=== PATIENT | male | born 1980 | race Caucasian/White ===

== ENCOUNTER 2017-06-02 15:06 | Emergency (ER) | payer OTHER ==
--- NOTE | 2017-06-02 15:40 | EDM.PDOC ---
ED HPI GENERAL MEDICAL PROBLEM - General Chief Complaint: General Stated Complaint: HIGH FEVER Time Seen by Provider: 06/02/17 15:25 Source of Information: Reports: Patient History Limitations: Reports: No Limitations - History of Present Illness INITIAL COMMENTS - FREE TEXT/NARRATIVE: History of present illness: [36-year-old male comes in complaining of high fevers for over a week indicates that he now has a diffuse rash that is in his trunk and spread to his extremities.] Review of systems: As per history of present illness and below otherwise all systems reviewed and negative. Past medical history: As per history of present illness and as reviewed below otherwise noncontributory. Surgical history: As per history of present illness and as reviewed below otherwise noncontributory. Social history: No reported history of drug or alcohol abuse. Family history: As per history of present illness and as reviewed below otherwise noncontributory. Physical exam: HEENT: Atraumatic, normocephalic, pupils reactive, negative for conjunctival pallor or scleral icterus, mucous membranes moist with oral pharyngeal erythema and white patchy exudates, neck supple, nontender, right TM noted to be red, dull and bulging, trachea midline. Lungs: Clear to auscultation, breath sounds equal bilaterally, chest nontender. Heart: S1S2, regular, negative for clicks, rubs, or JVD. Abdomen: Soft, nondistended, nontender. Negative for masses or hepatosplenomegaly. Negative for costovertebral tenderness. Pelvis: Stable nontender. Genitourinary: Deferred. Rectal: Deferred. Extremities: Atraumatic, negative for cords or calf pain. Neurovascular unremarkable. Neuro: Awake, alert, oriented. Cranial nerves II through XII unremarkable. Cerebellum unremarkable. Motor and sensory unremarkable throughout. Exam nonfocal. Diagnostics: [] Therapeutics: [] Impression: [#1 strep pharyngitis #2 right otitis media] Plan: [Antibiotics] Definitive disposition and diagnosis as appropriate pending reevaluation and review of above. - Related Data Allergies Allergy/AdvReac Type Severity Reaction Status Date / Time No Known Allergies Allergy Verified 06/02/17 15:28 Home Meds: Home Meds Amoxicillin/Potassium Clav [Augmentin 875-125 Tablet] 1 each PO BID #20 tablet 06/02/17 [Rx] buPROPion [Wellbutrin] 75 mg PO BEDTIME 06/02/17 [History] ED ROS GENERAL - Review of Systems Review Of Systems: See Below (See history of present illness) ED EXAM, GENERAL - Physical Exam Exam: See Below (See history of present illness) Departure - Departure Time of Disposition: 15:41 Disposition: Home, Self-Care 01 Condition: Good Clinical Impression: Strep pharyngitis, Right otitis media - Discharge Information Referrals: Bell Villagran NP [Primary Care Provider] - Forms: ED Department Discharge Additional Instructions: The following information is given to patients seen in the emergency department who are being discharged to home. This information is to outline your options for follow-up care. We provide all patients seen in our emergency department with a follow-up referral. The need for follow-up, as well as the timing and circumstances, are variable depending upon the specifics of your emergency department visit. If you don't have a primary care physician on staff, we will provide you with a referral. We always advise you to contact your personal physician following an emergency department visit to inform them of the circumstance of the visit and for follow-up with them and/or the need for any referrals to a consulting specialist. The emergency department will also refer you to a specialist when appropriate. This referral assures that you have the opportunity for follow-up care with a specialist. All of these measure are taken in an effort to provide you with optimal care, which includes your follow-up. Under all circumstances we always encourage you to contact your private physician who remains a resource for coordinating your care. When calling for follow-up care, please make the office aware that this follow-up is from your recent emergency room visit. If for any reason you are refused follow-up, please contact the [facility] Emergency Department at and asked to speak to the emergency department charge nurse. Take medication as directed Follow-up with PCP 1-2 days Return to ED as needed as discussed
[2017-06-02 16:07] VITALS: BP 131/86
== END 2017-06-02 16:03 | disposition home or self-care (01) ==
LOC: MW.ED 15:06
DX: J02.0 Streptococcal pharyngitis (principal); H66.91 Otitis media, unspecified, right ear; R21 Rash and other nonspecific skin eruption
CPT/HCPCS: 99282; 99283

== ENCOUNTER 2017-11-27 12:31 | Emergency (ER) | payer SELFPAY ==
--- NOTE | 2017-11-27 14:05 | EDM.PDOC ---
ED HPI GENERAL MEDICAL PROBLEM - General Chief Complaint: Respiratory Problem Stated Complaint: COLD,COUGH,FEVER AND RUNNING NOSE Time Seen by Provider: 11/27/17 13:05 Source of Information: Reports: Patient History Limitations: Reports: No Limitations - History of Present Illness INITIAL COMMENTS - FREE TEXT/NARRATIVE: HISTORY AND PHYSICAL: History of present illness: [Patient comes to the emergency room complaining of fever, chills, body aches, dry hacking cough sore throat and generalized malaise. 2 days ago he was experiencing a lot of fatigue, his symptoms of cough and body aches started yesterday. He has not taken any medication for his symptoms. Family members at home have similar symptoms. He states that he is otherwise healthy. He has not had any chest pain shortness of breath or difficulty breathing. The pain in his chest. No sputum production. No abdominal pain nausea or vomiting. Generalized muscle aches and pains. No recent falls or injuries.] Review of systems: As per history of present illness and below otherwise all systems reviewed and negative. Past medical history: As per history of present illness and as reviewed below otherwise noncontributory. Surgical history: As per history of present illness and as reviewed below otherwise noncontributory. Social history: No reported history of drug or alcohol abuse. Family history: As per history of present illness and as reviewed below otherwise noncontributory. Physical exam: HEENT: Atraumatic, normocephalic. TMs are pearly river. Oral mucous membranes are pink and moist. No tonsillar swelling erythema or exudate. Nares are patent and without discharge., Neck supple, no lymphadenopathy. Lungs: Clear to auscultation, breath sounds equal bilaterally. No wheezing crackles or rales. Heart: S1S2, regular rate and rhythm. Abdomen: Soft, nondistended, nontender. Pelvis: Stable nontender. Genitourinary: Deferred. Rectal: Deferred. Extremities: Atraumatic, no abnormalities. Neurovascular unremarkable. Neuro: Awake, alert, oriented. Cranial nerves II through XII unremarkable. Cerebellum unremarkable. Motor and sensory unremarkable throughout. Exam nonfocal. Diagnostics: [Strep swab, influenza A and B swab] Impression: [Influenza A] Plan: [Discussed with patient that his nasal swab is positive for influenza A. Offered Tamiflu which patient declines due to the cost. They do not have prescription insurance coverage. We discussed conservative measures for treating this virus. Strict return precautions are reviewed. Patient is are in agreement with today's plan.] Definitive disposition and diagnosis as appropriate pending reevaluation and review of above. Body Aches Pain Score (Numeric/FACES): 5 - Related Data Allergies Allergy/AdvReac Type Severity Reaction Status Date / Time No Known Allergies Allergy Verified 11/27/17 13:11 Home Meds: Home Meds . [No Known Home Meds] 11/27/17 [History] Past Medical History - Past Health History Medical/Surgical History: Denies Medical/Surgical History Social & Family History - Family History Family Medical History: Noncontributory - Tobacco Use Smoking Status *Q: Current Every Day Smoker Years of Tobacco use: 10 Packs/Tins Daily: 1 Second Hand Smoke Exposure: No - Recreational Drug Use Recreational Drug Use: No ED ROS GENERAL - Review of Systems Review Of Systems: ROS reveals no pertinent complaints other than HPI. ED EXAM, GENERAL - Physical Exam Exam: See Below Course - Vital Signs Last Recorded V/S: Last Vital Signs Temp 99.5 F 11/27/17 14:14 Pulse 105 H 11/27/17 14:14 Resp 18 11/27/17 14:14 BP 139/74 11/27/17 14:14 Pulse Ox 96 11/27/17 14:14 - Orders/Labs/Meds Orders: Active Orders 24 hr Category Date Time Status CULTURE STREP A CONFIRMATION [RM] Stat Lab 11/27/17 13:05 Results STREP SCRN A RAPID W CULT CONF [RM] Stat Lab 11/27/17 13:05 Results Departure - Departure Time of Disposition: 14:05 Disposition: Home, Self-Care 01 Condition: Good Clinical Impression: Influenza A - Discharge Information Instructions: Influenza, Adult, [id number] Referrals: PCP,None [Primary Care Provider] - Forms: ED Department Discharge Additional Instructions: The following information is given to patients seen in the emergency department who are being discharged to home. This information is to outline your options for follow-up care. We provide all patients seen in our emergency department with a follow-up referral. The need for follow-up, as well as the timing and circumstances, are variable depending upon the specifics of your emergency department visit. If you don't have a primary care physician on staff, we will provide you with a referral. We always advise you to contact your personal physician following an emergency department visit to inform them of the circumstance of the visit and for follow-up with them and/or the need for any referrals to a consulting specialist. The emergency department will also refer you to a specialist when appropriate. This referral assures that you have the opportunity for follow-up care with a specialist. All of these measure are taken in an effort to provide you with optimal care, which includes your follow-up. Under all circumstances we always encourage you to contact your private physician who remains a resource for coordinating your care. When calling for follow-up care, please make the office aware that this follow-up is from your recent emergency room visit. If for any reason you are refused follow-up, please contact the [facility] emergency department at and asked to speak to the emergency department charge nurse. [facility] [address] [place] [id number] Follow-up with your primary care provider at the clinic listed above in 48-72 hours. Tylenol, ibuprofen as needed for fever and discomfort. Robitussin or Delsym as needed for cough. Return to ER as needed as discussed. - My Orders Last 24 Hours: My Active Orders 11/27/17 13:05 CULTURE STREP A CONFIRMATION [RM] Stat STREP SCRN A RAPID W CULT CONF [RM] Stat - Assessment/Plan Last 24 Hours: My Active Orders 11/27/17 13:05 CULTURE STREP A CONFIRMATION [RM] Stat STREP SCRN A RAPID W CULT CONF [RM] Stat
[2017-11-27 14:20] VITALS: BP 139/74
== END 2017-11-27 14:14 | disposition home or self-care (01) ==
LOC: MW.ED 12:31
DX: J10.1 Influenza due to other identified influenza virus with other respiratory manifestations (principal); F17.210 Nicotine dependence, cigarettes, uncomplicated
CPT/HCPCS: 87081; 87804; 87880; 99283

== ENCOUNTER 2018-11-30 16:20 | Inpatient (IN) | payer BC ==
[2018-11-30] MEDS ORDERED: Sodium Chloride 0.9% 10 ML Syringe FLUSH PRN (16:28)
[2018-11-30] MEDS ORDERED: Sodium Chloride 0.9% 2.5 ML Syringe FLUSH PRN (16:28)
--- NOTE | 2018-11-30 16:33 | EDM.PDOC ---
ED HPI GENERAL MEDICAL PROBLEM - General Chief Complaint: Abdominal Pain Stated Complaint: ABDOMINAL PAIN Time Seen by Provider: 11/30/18 16:25 Source of Information: Reports: Patient History Limitations: Reports: No Limitations - History of Present Illness INITIAL COMMENTS - FREE TEXT/NARRATIVE: HISTORY AND PHYSICAL: History of present illness: Patient is a 38-year-old male who is brought to the emergency room with complaints of epigastric abdominal pain, nausea, subjective jaundice, and feeling full with small amounts of food. He denies any fever, chills, chest pain or shortness of breath. Denies any headache, change in vision, syncope or near syncope. States that his pain is mainly in the epigastrium and does move across to the left upper quadrant intermittently. The states that she noticed when he got out of the shower this morning he "looked like a highlighter " and was concerned that he appeared jaundiced. She reports that the yellow hue has dissipated. Denies any drug or alcohol abuse. Review of systems: As per history of present illness and below otherwise all systems reviewed and negative. Past medical history: As per history of present illness and as reviewed below otherwise noncontributory. Surgical history: As per history of present illness and as reviewed below otherwise noncontributory. Social history: See social history for further information Family history: As per history of present illness and as reviewed below otherwise noncontributory. Physical exam: General: Well-developed and well-nourished 38-year-old male. Alert and oriented. Nontoxic appearing and in no acute distress. HEENT: Atraumatic, normocephalic, pupils equal and reactive bilaterally, negative for conjunctival pallor with mild bilateral scleral jaundice, mucous membranes moist, TMs normal bilaterally, throat clear, neck supple, nontender, trachea midline. No drooling or trismus noted. No meningeal signs. No hot potato voice noted. Lungs: Clear to auscultation, breath sounds equal bilaterally, chest nontender. Heart: S1S2, regular rate and rhythm without overt murmur Abdomen: Soft, nondistended, nontender. Negative for masses or hepatosplenomegaly. Negative for costovertebral tenderness. Pelvis: Stable nontender. Genitourinary: Deferred. Rectal: Deferred. Skin: Intact, warm, dry. No lesions or rashes noted. Extremities: Atraumatic, moves all per self, negative for cords or calf pain. Neurovascular unremarkable. Neuro: Awake, alert, oriented. Cranial nerves II through XII unremarkable. Cerebellum unremarkable. Motor and sensory unremarkable throughout. Exam nonfocal. Notes: Patient's total bilirubin is 4.9, AST is 225, ALT of 913, and Alk Phos 198. CT of the abdomen and pelvis shows mild dilatation of the intra-and extrahepatic biliary ducts may be dyskinesia. Normal gallbladder without cholelithiasis. The radiologist does recommend a ultrasound for better characterization of these findings. Dr. Mckay and Dr Mcguire were both consult did on this patient. Dr. Mcguire states he is agreeable to having a consult on this patient with Dr. Mckay being the primary caregiver. Dr. Mckay is agreeable to admitting this patient for inpatient treatment. Patient is aware and agreeable to plan of care and denies any further questions or concerns at this time. Diagnostics: CBC, CMP, UA, Lipase, CT abdomen/pelvis, h.pylori Therapeutics: IV fluids, Pepcid, GI cocktail, Morphine Impression: Transaminitis Plan: Admit to Med/Surg Definitive disposition and diagnosis as appropriate pending reevaluation and review of above. Abdomen Pain Score (Numeric/FACES): 6 - Related Data Allergies Allergy/AdvReac Type Severity Reaction Status Date / Time No Known Allergies Allergy Verified 11/30/18 16:28 Home Meds: Home Meds . [No Known Home Meds] 11/27/17 [History] Past Medical History - Past Health History Medical/Surgical History: Denies Medical/Surgical History Social & Family History - Family History Family Medical History: Noncontributory ED ROS GENERAL - Review of Systems Review Of Systems: ROS reveals no pertinent complaints other than HPI. ED EXAM, GI/ABD - Physical Exam Exam: See Below (See dictation) Course - Vital Signs Last Recorded V/S: Last Vital Signs Temp 97.0 F 11/30/18 16:29 Pulse 75 11/30/18 17:48 Resp 17 11/30/18 16:29 BP 147/103 H 11/30/18 17:48 Pulse Ox 100 11/30/18 17:48 - Orders/Labs/Meds Orders: Active Orders 24 hr Category Date Time Status HEPATITIS PANEL (4) [REF] Stat Lab 11/30/18 17:59 Ordered UA RFX BART AND CULT IF INDIC [URIN] Stat Lab 11/30/18 16:28 Ordered Sodium Chloride 0.9% [Saline Flush] Med 11/30/18 16:28 Active 10 ml FLUSH ASDIRECTED PRN Sodium Chloride 0.9% [Saline Flush] Med 11/30/18 16:28 Active 2.5 ml FLUSH ASDIRECTED PRN Saline Lock Insert [OM.PC] Stat Oth 11/30/18 16:28 Ordered Medication Orders Sodium Chloride (Saline Flush) 10 ml FLUSH ASDIRECTED PRN PRN Reason: Keep Vein Open Sodium Chloride (Saline Flush) 2.5 ml FLUSH ASDIRECTED PRN PRN Reason: Keep Vein Open Labs: Laboratory Tests 11/30/18 11/30/18 11/30/18 Range/Units 16:45 16:45 16:45 WBC 6.30 (4.0-11.0) K/uL RBC 5.29 (4.50-5.90) M/uL Hgb 15.4 (13.0-17.0) g/dL Hct 44.9 (38.0-50.0) % MCV 84.9 (80.0-98.0) fL MCH 29.1 (27.0-32.0) pg MCHC 34.3 (31.0-37.0) g/dL RDW Std Deviation 42.5 (28.0-62.0) fl RDW Coeff of Marisa 14 (11.0-15.0) % Plt Count 193 (150-400) K/uL MPV 8.70 (7.40-12.00) fL Add Manual Diff YES Neutrophils % (Manual) 58 (48.0-80.0) % Lymphocytes % (Manual) 27 (16.0-40.0) % Monocytes % (Manual) 13 (0.0-15.0) % Eosinophils % (Manual) 2 (0.0-7.0) % Nucleated RBC % 0.0 /100WBC Absolute Seg Neuts 3.7 (1.4-5.7) Lymphocytes # (Manual) 1.7 (0.6-2.4) Monocytes # (Manual) 0.8 (0.0-0.8) Eosinophils # (Manual) 0.1 (0.0-0.7) Nucleated RBCs # 0 K/uL Sodium 137 (136-148) mmol/L Potassium 4.2 (3.5-5.1) mmol/L Chloride 101 (98-107) mmol/L Carbon Dioxide 28.7 (21.0-32.0) mmol/L BUN 21 H (7.0-18.0) mg/dL Creatinine 1.0 (0.8-1.3) mg/dL Est Cr Clr Drug Dosing 117.59 mL/min Estimated GFR (MDRD) > 60.0 ml/min Glucose 100 (74-106) mg/dL Calcium 9.0 (8.5-10.1) mg/dL Total Bilirubin 4.9 H (0.2-1.0) mg/dL AST 225 H (15-37) IU/L ALT 913 H (14-63) IU/L Alkaline Phosphatase 198 H (46-116) U/L Total Protein 7.8 (6.4-8.2) g/dL Albumin 3.9 (3.4-5.0) g/dL Globulin 3.9 (2.6-4.0) g/dL Albumin/Globulin Ratio 1.0 (0.9-1.6) Lipase 235 (73-393) U/L H. pylori IgG Antibody NEGATIVE (NEG) Meds: Medications Generic Name Dose Route Start Last Admin Trade Name Freq PRN Reason Stop Dose Admin Sodium Chloride 10 ml 11/30/18 16:28 Saline Flush FLUSH ASDIRECTED PRN Keep Vein Open Sodium Chloride 2.5 ml 11/30/18 16:28 Saline Flush FLUSH ASDIRECTED PRN Keep Vein Open Discontinued Medications Generic Name Dose Route Start Last Admin Trade Name Frefranki PRN Reason Stop Dose Admin Al Hydroxide/Mg Hydroxide 15 0 ml 11/30/18 16:42 11/30/18 17:14 ml/ Metoclopramide HCl 5 mg/ PO 11/30/18 16:43 1 each Lidocaine HCl 5 ml ONETIME ONE Administration Famotidine 20 mg 11/30/18 16:42 11/30/18 17:05 Pepcid IVPUSH 11/30/18 16:43 20 mg ONETIME ONE Administration Sodium Chloride 1,000 mls @ 999 mls/hr 11/30/18 16:41 11/30/18 16:59 Normal Saline IV 11/30/18 17:41 999 mls/hr STAT ONE Administration Iopamidol 100 ml 11/30/18 17:42 11/30/18 17:42 Isovue Multipack-370 (76%) IVPUSH 11/30/18 17:43 100 ml ONETIME STA Administration Morphine Sulfate 4 mg 11/30/18 17:46 11/30/18 17:52 Morphine IVPUSH 11/30/18 17:47 4 mg ONETIME ONE Administration Ondansetron HCl 4 mg 11/30/18 16:41 11/30/18 17:07 Zofran IVPUSH 11/30/18 16:42 4 mg ONETIME ONE Administration Departure - Departure Time of Disposition: 18:13 Disposition: Admitted As Inpatient 67 Clinical Impression: Transaminitis - Discharge Information Referrals: Bell Villagran NP [Primary Care Provider] - Forms: ED Department Discharge - My Orders Last 24 Hours: My Active Orders 11/30/18 16:28 UA RFX BART AND CULT IF INDIC [URIN] Stat Sodium Chloride 0.9% [Saline Flush] 10 ml FLUSH ASDIRECTED PRN Sodium Chloride 0.9% [Saline Flush] 2.5 ml FLUSH ASDIRECTED PRN Saline Lock Insert [OM.PC] Stat 11/30/18 17:59 HEPATITIS PANEL (4) [REF] Stat - Assessment/Plan Last 24 Hours: My Active Orders 11/30/18 16:28 UA RFX BART AND CULT IF INDIC [URIN] Stat Sodium Chloride 0.9% [Saline Flush] 10 ml FLUSH ASDIRECTED PRN Sodium Chloride 0.9% [Saline Flush] 2.5 ml FLUSH ASDIRECTED PRN Saline Lock Insert [OM.PC] Stat 11/30/18 17:59 HEPATITIS PANEL (4) [REF] Stat
[2018-11-30] MEDS ORDERED: Sodium Chloride 0.9% 1,000 ML IV ONE ×2 (16:41→20:00)
[2018-11-30] MEDS ORDERED: Ondansetron 4 MG/2 ML SDV IVPUSH ONE (16:41)
[2018-11-30] MEDS ORDERED: Alum Hydrox/Mag Hydrox/Simeth 15 ML, Metoclopramide 5 MG, Lidocaine 2% 5 ML PO ONE ×3 (16:42)
[2018-11-30] MEDS ORDERED: Famotidine 20 MG/2 ML SDV IVPUSH ONE (16:42)
[2018-11-30 17:13] LABS: CHLORIDE,CL 101 mmol/L (98-107); SODIUM,NA 137 mmol/L (136-148)
[2018-11-30] MEDS ORDERED: Iopamidol 755 MG/ML 500 ML Multipack Bottle IVPUSH STA (17:42)
[2018-11-30] MEDS ORDERED: Morphine 4 MG/ML Syringe IVPUSH ONE (17:46)
--- NOTE | 2018-11-30 17:59 | CT ---
INDICATION: Worsening abdominal pain over several days. TECHNIQUE: CT abdomen and pelvis acquired with 100 mL Isovue 370 IV contrast. COMPARISON: None FINDINGS: Lower chest: Unremarkable. Liver: Intrahepatic ductal dilatation. Periportal edema. Common bile duct mildly dilated to 9 mm. No filling defect. No liver lesion. Spleen: Unremarkable. Pancreas: Unremarkable. Gallbladder and bile ducts: Gallbladder is normal. Dilated common bile duct and mild intrahepatic ductal dilatation. Kidneys: Unremarkable. Adrenal glands: Unremarkable. GI tract: Unremarkable. Moderate volume of stool. Appendix is normal. Vascular structures: Negative. No sign of aneurysm. Lymph nodes: Unremarkable. Miscellaneous: Unremarkable. No free air or significant free fluid. Pelvic Organs: Uterus is not apparent and no adnexal mass. Likely prior oophorectomy and hysterectomy. Bones: Unremarkable for age. IMPRESSION: Mild dilatation of intra and extrahepatic biliary ducts may be dyskinesia. Normal gallbladder without cholelithiasis. Laboratory correlation recommended. Ultrasound may help better characterize if there is clinical concern. Please note that all CT scans at this facility use dose modulation, iterative reconstruction, and/or weight-based dosing when appropriate to reduce radiation dose to as low as reasonably achievable. Dictated by Blake Ambrocio MD @ Nov 30 2018 5:57PM Signed by Dr. Blake Ambrocio @ Nov 30 2018 5:57PM
--- NOTE | 2018-11-30 19:58 | PCM.HP ---
H&P History of Present Illness - General Date of Service: 11/30/18 Admit Problem/Dx: Admission Diagnosis/Problem Admission Diagnosis/Problem Elevated liver function tests - History of Present Illness Initial Comments - Free Text/Narative: 38 yo male who presents with five day history of epigastric pain. The pain radiates to the back. The pain is worse after eating. He denies any fevers, diarrhea, nausea or vomiting. noticed him to be yellow today. IN the ED he was noted to have abnormal LFTs. His bilirubin was 4.9. CT scan shows mild dilitation of intra and extrahepatic biliary duct. Patient denies any alcohol or acetaminophen use. Abdomen Pain Score (Numeric/FACES): 6 - Related Data Allergies/Adverse Reactions: Allergies Allergy/AdvReac Type Severity Reaction Status Date / Time No Known Allergies Allergy Verified 11/30/18 16:28 Home Medications: Home Meds . [No Known Home Meds] 11/27/17 [History] Past Medical History - Past Health History Medical/Surgical History: Denies Medical/Surgical History - Infectious Disease History Infectious Disease History: Reports: Chicken Pox Social & Family History - Family History Family Medical History: Noncontributory - Tobacco Use Smoking Status *Q: Never Smoker - Caffeine Use Caffeine Use: Reports: None - Recreational Drug Use Recreational Drug Use: No H&P Review of Systems - Review of Systems: Review Of Systems: ROS reveals no pertinent complaints other than HPI. Exam - Exam Exam: See Below - Vital Signs Vital Signs: Last Vital Signs Temp 36.1 C 11/30/18 16:29 Pulse 75 11/30/18 17:48 Resp 17 11/30/18 16:29 BP 147/103 H 11/30/18 17:48 Pulse Ox 100 11/30/18 17:48 Weight: 85.4 kg - Exam General: Alert, Oriented HEENT: Mucosa Moist & [place], Scleral Icterus Neck: Supple Lungs: Clear to Auscultation, Normal Respiratory Effort Cardiovascular: Regular Rate, Regular Rhythm GI/Abdominal Exam: Soft, Non-Tender Extremities: Non-Tender, No Pedal Edema Skin: Warm, Dry, Intact - Patient Data Lab Results Last 24 hrs: Laboratory Results - last 24 hr 11/30/18 11/30/18 11/30/18 Range/Units 16:45 16:45 16:45 WBC 6.30 (4.0-11.0) K/uL RBC 5.29 (4.50-5.90) M/uL Hgb 15.4 (13.0-17.0) g/dL Hct 44.9 (38.0-50.0) % MCV 84.9 (80.0-98.0) fL MCH 29.1 (27.0-32.0) pg MCHC 34.3 (31.0-37.0) g/dL RDW Std Deviation 42.5 (28.0-62.0) fl RDW Coeff of Marisa 14 (11.0-15.0) % Plt Count 193 (150-400) K/uL MPV 8.70 (7.40-12.00) fL Add Manual Diff YES Neutrophils % (Manual) 58 (48.0-80.0) % Lymphocytes % (Manual) 27 (16.0-40.0) % Monocytes % (Manual) 13 (0.0-15.0) % Eosinophils % (Manual) 2 (0.0-7.0) % Nucleated RBC % 0.0 /100WBC Absolute Seg Neuts 3.7 (1.4-5.7) Lymphocytes # (Manual) 1.7 (0.6-2.4) Monocytes # (Manual) 0.8 (0.0-0.8) Eosinophils # (Manual) 0.1 (0.0-0.7) Nucleated RBCs # 0 K/uL Sodium 137 (136-148) mmol/L Potassium 4.2 (3.5-5.1) mmol/L Chloride 101 (98-107) mmol/L Carbon Dioxide 28.7 (21.0-32.0) mmol/L BUN 21 H (7.0-18.0) mg/dL Creatinine 1.0 (0.8-1.3) mg/dL Est Cr Clr Drug Dosing 117.59 mL/min Estimated GFR (MDRD) > 60.0 ml/min Glucose 100 (74-106) mg/dL Calcium 9.0 (8.5-10.1) mg/dL Total Bilirubin 4.9 H (0.2-1.0) mg/dL AST 225 H (15-37) IU/L ALT 913 H (14-63) IU/L Alkaline Phosphatase 198 H (46-116) U/L Total Protein 7.8 (6.4-8.2) g/dL Albumin 3.9 (3.4-5.0) g/dL Globulin 3.9 (2.6-4.0) g/dL Albumin/Globulin Ratio 1.0 (0.9-1.6) Lipase 235 (73-393) U/L H. pylori IgG Antibody NEGATIVE (NEG) Result Diagrams: 12/01/18 04:53 12/01/18 04:53 Problem List Initiated/Reviewed/Updated: Yes Orders Last 24hrs: Active Orders 24 hr Category Date Time Status Admission Status [Patient Status] [ADT] Stat ADT 11/30/18 18:16 Active Antiembolic Devices [RC] PER UNIT ROUTINE Care 11/30/18 19:52 Ordered Oxygen Therapy [RC] PRN Care 11/30/18 19:50 Ordered Up ad Yajaira [RC] ASDIRECTED Care 11/30/18 19:50 Ordered VTE/DVT Education [RC] PER UNIT ROUTINE Care 11/30/18 19:50 Ordered Vital Signs [RC] Q4H Care 11/30/18 19:50 Ordered Clear Liquid Diet [DIET] Diet 11/30/18 Breakfast Ordered Abdomen Ltd [US] Routine Exams 11/30/18 19:26 Ordered Abdomen w Cont [MR] Routine Exams 11/30/18 19:49 Ordered ACETAMINOPHEN [CHEM] Routine Lab 11/30/18 19:24 Ordered CBC WITH AUTO DIFF [HEME] AM Lab 12/01/18 05:11 Ordered CBC WITH AUTO DIFF [HEME] AM Lab 12/02/18 05:11 Ordered COMPREHENSIVE METABOLIC PN,CMP [CHEM] AM Lab 12/01/18 05:11 Ordered COMPREHENSIVE METABOLIC PN,CMP [CHEM] AM Lab 12/02/18 05:11 Ordered HEPATITIS PANEL (4) [REF] Stat Lab 11/30/18 17:59 Ordered UA RFX BART AND CULT IF INDIC [URIN] Stat Lab 11/30/18 16:28 Ordered Sodium Chloride 0.9% [Normal Saline] 1,000 ml Med 11/30/18 20:00 Ordered IV BOLUS Sodium Chloride 0.9% [Saline Flush] Med 11/30/18 16:28 Active 10 ml FLUSH ASDIRECTED PRN Sodium Chloride 0.9% [Saline Flush] Med 11/30/18 16:28 Active 2.5 ml FLUSH ASDIRECTED PRN Saline Lock Insert [OM.PC] Stat Oth 11/30/18 16:28 Ordered Sequential Compression Device [OM.PC] Per Unit Routine Oth 11/30/18 19:50 Ordered Resuscitation Status Routine Resus Stat 11/30/18 19:50 Ordered Medication Orders Sodium Chloride (Saline Flush) 10 ml FLUSH ASDIRECTED PRN PRN Reason: Keep Vein Open Sodium Chloride (Saline Flush) 2.5 ml FLUSH ASDIRECTED PRN PRN Reason: Keep Vein Open Assessment/Plan Comment:: 38 yo male admitted for abdominal pain with jaundice. Patient has no fever or white count. Dr. Mcguire was consulted and recommended an MRCP. MRCP is not available until Sunday. Abdominal ultrasound has been ordered.
[2018-11-30] MEDS: HYDROmorphone 1 MG/ML Syringe IVPUSH PRN ×2 (20:30→23:28)
--- NOTE | 2018-11-30 21:18 | PCM.SN ---
- Free Text/Narrative Note: pt seen, chart reviewed; painful jaundice X 1 yr, on and off; denied BRBPR/ black tarry stool/dark urine/white stool/wt loss wo intention; would keep npo, repeat blood work, and hepatitis panel, and us ltd, if no finding, would proceed w MRCP; eventuallly may need ERDP; will follow with you; cx dict [id number]
[2018-12-01] MEDS: HYDROmorphone 1 MG/ML Syringe IVPUSH PRN ×3 (03:50→09:42)
[2018-12-01 06:09] LABS: CHLORIDE,CL 101 mmol/L (98-107); SODIUM,NA 135 mmol/L (136-148)
[2018-12-01] MEDS: Sodium Chloride 0.9% 1,000 ML IV SCH ×2 (08:55→18:45)
--- NOTE | 2018-12-01 09:23 | US ---
INDICATION: Jaundice. TECHNIQUE: Right upper quadrant ultrasound. COMPARISON: CT 11/30/2018. FINDINGS: The liver measures 16.3 cm in length. The hepatic echotexture is normal with no hepatic masses. There is evidence of intrahepatic biliary dilatation. The gallbladder contains no calculi. There is a non mobile echogenic focus arising along the anchors gallbladder wall, most likely representing a small polyp. No sludge is visualized. There is no sonographic Rice sign. The common duct is dilated, measuring 11 mm maximally. No intra ductal masses or calculi are seen. The pancreas appears normal with no ductal dilatation. No pancreatic mass is appreciated. The right kidney is normal. IMPRESSION: 1. Evidence of intrahepatic and extrahepatic biliary dilatation with no obvious obstructing lesion demonstrated. 2. Small gallbladder polyp. No calculi are seen. There is no sonographic evidence of cholecystitis. 3. No pancreatic abnormalities are demonstrated. Dictated by Richard Evans MD @ Dec 01 2018 9:13AM Signed by Dr. Richard Evans @ Dec 01 2018 9:20AM
--- NOTE | 2018-12-01 10:09 | PCM.PN ---
- General Info Date of Service: 12/01/18 - Review of Systems Systems Review Comment:: patient - Patient Data Vitals - Most Recent: Last Vital Signs Temp 37.0 C 12/01/18 07:15 Pulse 79 12/01/18 07:15 Resp 20 12/01/18 07:15 BP 156/94 H 12/01/18 07:15 Pulse Ox 95 12/01/18 07:15 Weight - Most Recent: 85.4 kg I&O - Last 24 Hours: Intake & Output 11/30/18 12/01/18 12/01/18 21:59 06:59 14:59 Intake Total Output Total Balance Lab Results Last 24 Hours: Laboratory Results - last 24 hr 11/30/18 11/30/18 11/30/18 Range/Units 16:45 16:45 16:45 WBC 6.30 (4.0-11.0) K/uL RBC 5.29 (4.50-5.90) M/uL Hgb 15.4 (13.0-17.0) g/dL Hct 44.9 (38.0-50.0) % MCV 84.9 (80.0-98.0) fL MCH 29.1 (27.0-32.0) pg MCHC 34.3 (31.0-37.0) g/dL RDW Std Deviation 42.5 (28.0-62.0) fl RDW Coeff of Marisa 14 (11.0-15.0) % Plt Count 193 (150-400) K/uL MPV 8.70 (7.40-12.00) fL Add Manual Diff YES Neutrophils % (Manual) 58 (48.0-80.0) % Lymphocytes % (Manual) 27 (16.0-40.0) % Monocytes % (Manual) 13 (0.0-15.0) % Eosinophils % (Manual) 2 (0.0-7.0) % Nucleated RBC % 0.0 /100WBC Absolute Seg Neuts 3.7 (1.4-5.7) Lymphocytes # (Manual) 1.7 (0.6-2.4) Monocytes # (Manual) 0.8 (0.0-0.8) Eosinophils # (Manual) 0.1 (0.0-0.7) Nucleated RBCs # 0 K/uL Sodium 137 (136-148) mmol/L Potassium 4.2 (3.5-5.1) mmol/L Chloride 101 (98-107) mmol/L Carbon Dioxide 28.7 (21.0-32.0) mmol/L BUN 21 H (7.0-18.0) mg/dL Creatinine 1.0 (0.8-1.3) mg/dL Est Cr Clr Drug Dosing 117.59 mL/min Estimated GFR (MDRD) > 60.0 ml/min Glucose 100 (74-106) mg/dL Calcium 9.0 (8.5-10.1) mg/dL Total Bilirubin 4.9 H (0.2-1.0) mg/dL AST 225 H (15-37) IU/L ALT 913 H (14-63) IU/L Alkaline Phosphatase 198 H (46-116) U/L Total Protein 7.8 (6.4-8.2) g/dL Albumin 3.9 (3.4-5.0) g/dL Globulin 3.9 (2.6-4.0) g/dL Albumin/Globulin Ratio 1.0 (0.9-1.6) Lipase 235 (73-393) U/L Urine Color Urine Appearance Urine pH (5.0-8.0) Ur Specific [place] (1.001-1.035) Urine Protein (NEGATIVE) mg/dL Urine Glucose (UA) (NEGATIVE) mg/dL Urine Ketones (NEGATIVE) mg/dL Urine Occult Blood (NEGATIVE) Urine Nitrite (NEGATIVE) Urine Bilirubin (NEGATIVE) Urine Ictotest Urine Urobilinogen (<2.0) EU/dL Ur Leukocyte Esterase (NEGATIVE) Urine RBC (0-2/HPF) Urine WBC (0-5/HPF) Ur Epithelial Cells (NONE-FEW) Urine Bacteria (NEGATIVE) Acetaminophen ug/mL H. pylori IgG Antibody NEGATIVE (NEG) 11/30/18 11/30/18 12/01/18 Range/Units 19:24 23:30 04:53 WBC 11.05 H (4.0-11.0) K/uL RBC 5.07 (4.50-5.90) M/uL Hgb 14.8 (13.0-17.0) g/dL Hct 42.7 (38.0-50.0) % MCV 84.2 (80.0-98.0) fL MCH 29.2 (27.0-32.0) pg MCHC 34.7 (31.0-37.0) g/dL RDW Std Deviation 42.7 (28.0-62.0) fl RDW Coeff of Marisa 14 (11.0-15.0) % Plt Count 196 (150-400) K/uL MPV 9.20 (7.40-12.00) fL Add Manual Diff YES Neutrophils % (Manual) 72 (48.0-80.0) % Lymphocytes % (Manual) 11 L (16.0-40.0) % Monocytes % (Manual) 17 H (0.0-15.0) % Eosinophils % (Manual) (0.0-7.0) % Nucleated RBC % 0.0 /100WBC Absolute Seg Neuts 8.0 H (1.4-5.7) Lymphocytes # (Manual) 1.2 (0.6-2.4) Monocytes # (Manual) 1.9 H (0.0-0.8) Eosinophils # (Manual) (0.0-0.7) Nucleated RBCs # 0 K/uL Sodium (136-148) mmol/L Potassium (3.5-5.1) mmol/L Chloride (98-107) mmol/L Carbon Dioxide (21.0-32.0) mmol/L BUN (7.0-18.0) mg/dL Creatinine (0.8-1.3) mg/dL Est Cr Clr Drug Dosing mL/min Estimated GFR (MDRD) ml/min Glucose (74-106) mg/dL Calcium (8.5-10.1) mg/dL Total Bilirubin (0.2-1.0) mg/dL AST (15-37) IU/L ALT (14-63) IU/L Alkaline Phosphatase (46-116) U/L Total Protein (6.4-8.2) g/dL Albumin (3.4-5.0) g/dL Globulin (2.6-4.0) g/dL Albumin/Globulin Ratio (0.9-1.6) Lipase (73-393) U/L Urine Color YELLOW Urine Appearance HAZY Urine pH 5.5 (5.0-8.0) Ur Specific [place] 1.020 (1.001-1.035) Urine Protein NEGATIVE (NEGATIVE) mg/dL Urine Glucose (UA) NEGATIVE (NEGATIVE) mg/dL Urine Ketones TRACE H (NEGATIVE) mg/dL Urine Occult Blood NEGATIVE (NEGATIVE) Urine Nitrite NEGATIVE (NEGATIVE) Urine Bilirubin MODERATE H (NEGATIVE) Urine Ictotest POSITIVE Urine Urobilinogen 0.2 (<2.0) EU/dL Ur Leukocyte Esterase NEGATIVE (NEGATIVE) Urine RBC 0-1 (0-2/HPF) Urine WBC 0-2 (0-5/HPF) Ur Epithelial Cells RARE (NONE-FEW) Urine Bacteria FEW (NEGATIVE) Acetaminophen 0.0 ug/mL H. pylori IgG Antibody (NEG) 12/01/18 Range/Units 04:53 WBC (4.0-11.0) K/uL RBC (4.50-5.90) M/uL Hgb (13.0-17.0) g/dL Hct (38.0-50.0) % MCV (80.0-98.0) fL MCH (27.0-32.0) pg MCHC (31.0-37.0) g/dL RDW Std Deviation (28.0-62.0) fl RDW Coeff of Marisa (11.0-15.0) % Plt Count (150-400) K/uL MPV (7.40-12.00) fL Add Manual Diff Neutrophils % (Manual) (48.0-80.0) % Lymphocytes % (Manual) (16.0-40.0) % Monocytes % (Manual) (0.0-15.0) % Eosinophils % (Manual) (0.0-7.0) % Nucleated RBC % /100WBC Absolute Seg Neuts (1.4-5.7) Lymphocytes # (Manual) (0.6-2.4) Monocytes # (Manual) (0.0-0.8) Eosinophils # (Manual) (0.0-0.7) Nucleated RBCs # K/uL Sodium 135 L (136-148) mmol/L Potassium 3.8 (3.5-5.1) mmol/L Chloride 101 (98-107) mmol/L Carbon Dioxide 22.8 (21.0-32.0) mmol/L BUN 10 (7.0-18.0) mg/dL Creatinine 0.7 L (0.8-1.3) mg/dL Est Cr Clr Drug Dosing 167.99 mL/min Estimated GFR (MDRD) > 60.0 ml/min Glucose 100 (74-106) mg/dL Calcium 8.1 L (8.5-10.1) mg/dL Total Bilirubin 5.2 H (0.2-1.0) mg/dL AST 138 H (15-37) IU/L ALT 695 H (14-63) IU/L Alkaline Phosphatase 189 H (46-116) U/L Total Protein 7.1 (6.4-8.2) g/dL Albumin 3.4 (3.4-5.0) g/dL Globulin 3.7 (2.6-4.0) g/dL Albumin/Globulin Ratio 0.9 (0.9-1.6) Lipase (73-393) U/L Urine Color Urine Appearance Urine pH (5.0-8.0) Ur Specific [place] (1.001-1.035) Urine Protein (NEGATIVE) mg/dL Urine Glucose (UA) (NEGATIVE) mg/dL Urine Ketones (NEGATIVE) mg/dL Urine Occult Blood (NEGATIVE) Urine Nitrite (NEGATIVE) Urine Bilirubin (NEGATIVE) Urine Ictotest Urine Urobilinogen (<2.0) EU/dL Ur Leukocyte Esterase (NEGATIVE) Urine RBC (0-2/HPF) Urine WBC (0-5/HPF) Ur Epithelial Cells (NONE-FEW) Urine Bacteria (NEGATIVE) Acetaminophen ug/mL H. pylori IgG Antibody (NEG) Med Orders - Current: Current Medications Hydromorphone HCl (Dilaudid) 1 mg IVPUSH Q2H PRN PRN Reason: Pain Last Admin: 12/01/18 09:42 Dose: 1 mg Sodium Chloride (Normal Saline) 1,000 mls @ 125 mls/hr IV ASDIRECTED JOYA Last Admin: 12/01/18 08:55 Dose: 125 mls/hr Sodium Chloride (Saline Flush) 10 ml FLUSH ASDIRECTED PRN PRN Reason: Keep Vein Open Sodium Chloride (Saline Flush) 2.5 ml FLUSH ASDIRECTED PRN PRN Reason: Keep Vein Open Discontinued Medications Al Hydroxide/Mg Hydroxide 15 ml/ Metoclopramide HCl 5 mg/Lidocaine HCl 5 ml 0 ml PO ONETIME ONE Stop: 11/30/18 16:43 Last Admin: 11/30/18 17:14 Dose: 1 each Famotidine (Pepcid) 20 mg IVPUSH ONETIME ONE Stop: 11/30/18 16:43 Last Admin: 11/30/18 17:05 Dose: 20 mg Sodium Chloride (Normal Saline) 1,000 mls @ 999 mls/hr IV STAT ONE Stop: 11/30/18 17:41 Last Admin: 11/30/18 16:59 Dose: 999 mls/hr Sodium Chloride (Normal Saline) 1,000 mls @ 999 mls/hr IV BOLUS ONE Stop: 11/30/18 21:00 Last Admin: 11/30/18 20:50 Dose: 999 mls/hr Iopamidol (Isovue Multipack-370 (76%)) 100 ml IVPUSH ONETIME STA Stop: 11/30/18 17:43 Last Admin: 11/30/18 17:42 Dose: 100 ml Morphine Sulfate (Morphine) 4 mg IVPUSH ONETIME ONE Stop: 11/30/18 17:47 Last Admin: 11/30/18 17:52 Dose: 4 mg Ondansetron HCl (Zofran) 4 mg IVPUSH ONETIME ONE Stop: 11/30/18 16:42 Last Admin: 11/30/18 17:07 Dose: 4 mg - Exam General: Alert, Oriented Lungs: Clear to Auscultation, Normal Respiratory Effort Cardiovascular: Regular Rate, Regular Rhythm GI/Abdominal Exam: Soft, Non-Tender, No Distention Extremities: Non-Tender, No Pedal Edema Skin: Warm, Dry, Intact - Problem List Review Problem List Initiated/Reviewed/Updated: Yes - My Orders Last 24 Hours: My Active Orders 11/30/18 19:26 Abdomen Ltd [US] Routine 11/30/18 19:49 Abdomen w Cont [MR] Routine 11/30/18 19:50 Oxygen Therapy [RC] PRN Up ad Yajaira [RC] ASDIRECTED VTE/DVT Education [RC] PER UNIT ROUTINE Vital Signs [RC] Q4H Sequential Compression Device [OM.PC] Per Unit Routine Resuscitation Status Routine 11/30/18 19:52 Antiembolic Devices [RC] Q6H 11/30/18 19:55 HYDROmorphone [Dilaudid] 1 mg IVPUSH Q2H PRN 12/01/18 08:45 Sodium Chloride 0.9% [Normal Saline] 1,000 ml IV ASDIRECTED 12/01/18 10:15 Ciprofloxacin in D5W [Cipro in D5W 400 MG/200 ML] 400 mg Premix Bag 1 bag IV Q12H metroNIDAZOLE/Normal Saline [Flagyl 500 MG in NS 100 ML] 500 mg Premix Bag 1 bag IV Q6H 12/01/18 Breakfast NPO After Midnight [Nothing per Oral After Midnight Diet] [DIET] 12/02/18 05:11 CBC WITH AUTO DIFF [HEME] AM COMPREHENSIVE METABOLIC PN,CMP [CHEM] AM - Plan Plan:: 38 yo male admitted for abdominal pain with jaundice. Ultrasound shows intra and extrahepatic ductal dilation but no obstructing lesion. Dr. Mcguire was consulted and recommended an MRCP. Will place on Ciprofloxacin and Flagyl.
[2018-12-01] MEDS ORDERED: metroNIDAZOLE/Normal Saline 500 MG in Premix Bag 1 BAG IV SCH ×4 (10:15)
[2018-12-01] MEDS ORDERED: Ciprofloxacin in D5W 400 MG in Premix Bag 1 BAG IV SCH ×2 (10:15)
--- NOTE | 2018-12-01 11:05 | PCM.SURGPN ---
- General Info Date of Service: 12/01/18 POD#: 1 Pain Score: 6 - Review of Systems General: Reports: No Symptoms ("still hurts, not as bad, and comes and goes, not continueous; no nausea") - Patient Data Vitals - Most Recent: Last Vital Signs Temp 98.6 F 12/01/18 07:15 Pulse 79 12/01/18 07:15 Resp 20 12/01/18 07:15 BP 156/94 H 12/01/18 07:15 Pulse Ox 95 12/01/18 07:15 Weight - Most Recent: 188 lb 4.396 oz I&O - Last 24 Hours: Intake & Output 11/30/18 12/01/18 12/01/18 21:59 06:59 14:59 Intake Total Output Total Balance Lab Results Last 24 Hrs: Laboratory Results - last 24 hr 11/30/18 11/30/18 11/30/18 Range/Units 16:45 16:45 16:45 WBC 6.30 (4.0-11.0) K/uL RBC 5.29 (4.50-5.90) M/uL Hgb 15.4 (13.0-17.0) g/dL Hct 44.9 (38.0-50.0) % MCV 84.9 (80.0-98.0) fL MCH 29.1 (27.0-32.0) pg MCHC 34.3 (31.0-37.0) g/dL RDW Std Deviation 42.5 (28.0-62.0) fl RDW Coeff of Marisa 14 (11.0-15.0) % Plt Count 193 (150-400) K/uL MPV 8.70 (7.40-12.00) fL Add Manual Diff YES Neutrophils % (Manual) 58 (48.0-80.0) % Lymphocytes % (Manual) 27 (16.0-40.0) % Monocytes % (Manual) 13 (0.0-15.0) % Eosinophils % (Manual) 2 (0.0-7.0) % Nucleated RBC % 0.0 /100WBC Absolute Seg Neuts 3.7 (1.4-5.7) Lymphocytes # (Manual) 1.7 (0.6-2.4) Monocytes # (Manual) 0.8 (0.0-0.8) Eosinophils # (Manual) 0.1 (0.0-0.7) Nucleated RBCs # 0 K/uL Sodium 137 (136-148) mmol/L Potassium 4.2 (3.5-5.1) mmol/L Chloride 101 (98-107) mmol/L Carbon Dioxide 28.7 (21.0-32.0) mmol/L BUN 21 H (7.0-18.0) mg/dL Creatinine 1.0 (0.8-1.3) mg/dL Est Cr Clr Drug Dosing 117.59 mL/min Estimated GFR (MDRD) > 60.0 ml/min Glucose 100 (74-106) mg/dL Calcium 9.0 (8.5-10.1) mg/dL Total Bilirubin 4.9 H (0.2-1.0) mg/dL AST 225 H (15-37) IU/L ALT 913 H (14-63) IU/L Alkaline Phosphatase 198 H (46-116) U/L Total Protein 7.8 (6.4-8.2) g/dL Albumin 3.9 (3.4-5.0) g/dL Globulin 3.9 (2.6-4.0) g/dL Albumin/Globulin Ratio 1.0 (0.9-1.6) Lipase 235 (73-393) U/L Urine Color Urine Appearance Urine pH (5.0-8.0) Ur Specific Serena (1.001-1.035) Urine Protein (NEGATIVE) mg/dL Urine Glucose (UA) (NEGATIVE) mg/dL Urine Ketones (NEGATIVE) mg/dL Urine Occult Blood (NEGATIVE) Urine Nitrite (NEGATIVE) Urine Bilirubin (NEGATIVE) Urine Ictotest Urine Urobilinogen (<2.0) EU/dL Ur Leukocyte Esterase (NEGATIVE) Urine RBC (0-2/HPF) Urine WBC (0-5/HPF) Ur Epithelial Cells (NONE-FEW) Urine Bacteria (NEGATIVE) Acetaminophen ug/mL H. pylori IgG Antibody NEGATIVE (NEG) 11/30/18 11/30/18 12/01/18 Range/Units 19:24 23:30 04:53 WBC 11.05 H (4.0-11.0) K/uL RBC 5.07 (4.50-5.90) M/uL Hgb 14.8 (13.0-17.0) g/dL Hct 42.7 (38.0-50.0) % MCV 84.2 (80.0-98.0) fL MCH 29.2 (27.0-32.0) pg MCHC 34.7 (31.0-37.0) g/dL RDW Std Deviation 42.7 (28.0-62.0) fl RDW Coeff of Marisa 14 (11.0-15.0) % Plt Count 196 (150-400) K/uL MPV 9.20 (7.40-12.00) fL Add Manual Diff YES Neutrophils % (Manual) 72 (48.0-80.0) % Lymphocytes % (Manual) 11 L (16.0-40.0) % Monocytes % (Manual) 17 H (0.0-15.0) % Eosinophils % (Manual) (0.0-7.0) % Nucleated RBC % 0.0 /100WBC Absolute Seg Neuts 8.0 H (1.4-5.7) Lymphocytes # (Manual) 1.2 (0.6-2.4) Monocytes # (Manual) 1.9 H (0.0-0.8) Eosinophils # (Manual) (0.0-0.7) Nucleated RBCs # 0 K/uL Sodium (136-148) mmol/L Potassium (3.5-5.1) mmol/L Chloride (98-107) mmol/L Carbon Dioxide (21.0-32.0) mmol/L BUN (7.0-18.0) mg/dL Creatinine (0.8-1.3) mg/dL Est Cr Clr Drug Dosing mL/min Estimated GFR (MDRD) ml/min Glucose (74-106) mg/dL Calcium (8.5-10.1) mg/dL Total Bilirubin (0.2-1.0) mg/dL AST (15-37) IU/L ALT (14-63) IU/L Alkaline Phosphatase (46-116) U/L Total Protein (6.4-8.2) g/dL Albumin (3.4-5.0) g/dL Globulin (2.6-4.0) g/dL Albumin/Globulin Ratio (0.9-1.6) Lipase (73-393) U/L Urine Color YELLOW Urine Appearance HAZY Urine pH 5.5 (5.0-8.0) Ur Specific Serena 1.020 (1.001-1.035) Urine Protein NEGATIVE (NEGATIVE) mg/dL Urine Glucose (UA) NEGATIVE (NEGATIVE) mg/dL Urine Ketones TRACE H (NEGATIVE) mg/dL Urine Occult Blood NEGATIVE (NEGATIVE) Urine Nitrite NEGATIVE (NEGATIVE) Urine Bilirubin MODERATE H (NEGATIVE) Urine Ictotest POSITIVE Urine Urobilinogen 0.2 (<2.0) EU/dL Ur Leukocyte Esterase NEGATIVE (NEGATIVE) Urine RBC 0-1 (0-2/HPF) Urine WBC 0-2 (0-5/HPF) Ur Epithelial Cells RARE (NONE-FEW) Urine Bacteria FEW (NEGATIVE) Acetaminophen 0.0 ug/mL H. pylori IgG Antibody (NEG) 12/01/18 Range/Units 04:53 WBC (4.0-11.0) K/uL RBC (4.50-5.90) M/uL Hgb (13.0-17.0) g/dL Hct (38.0-50.0) % MCV (80.0-98.0) fL MCH (27.0-32.0) pg MCHC (31.0-37.0) g/dL RDW Std Deviation (28.0-62.0) fl RDW Coeff of Marisa (11.0-15.0) % Plt Count (150-400) K/uL MPV (7.40-12.00) fL Add Manual Diff Neutrophils % (Manual) (48.0-80.0) % Lymphocytes % (Manual) (16.0-40.0) % Monocytes % (Manual) (0.0-15.0) % Eosinophils % (Manual) (0.0-7.0) % Nucleated RBC % /100WBC Absolute Seg Neuts (1.4-5.7) Lymphocytes # (Manual) (0.6-2.4) Monocytes # (Manual) (0.0-0.8) Eosinophils # (Manual) (0.0-0.7) Nucleated RBCs # K/uL Sodium 135 L (136-148) mmol/L Potassium 3.8 (3.5-5.1) mmol/L Chloride 101 (98-107) mmol/L Carbon Dioxide 22.8 (21.0-32.0) mmol/L BUN 10 (7.0-18.0) mg/dL Creatinine 0.7 L (0.8-1.3) mg/dL Est Cr Clr Drug Dosing 167.99 mL/min Estimated GFR (MDRD) > 60.0 ml/min Glucose 100 (74-106) mg/dL Calcium 8.1 L (8.5-10.1) mg/dL Total Bilirubin 5.2 H (0.2-1.0) mg/dL AST 138 H (15-37) IU/L ALT 695 H (14-63) IU/L Alkaline Phosphatase 189 H (46-116) U/L Total Protein 7.1 (6.4-8.2) g/dL Albumin 3.4 (3.4-5.0) g/dL Globulin 3.7 (2.6-4.0) g/dL Albumin/Globulin Ratio 0.9 (0.9-1.6) Lipase (73-393) U/L Urine Color Urine Appearance Urine pH (5.0-8.0) Ur Specific Serena (1.001-1.035) Urine Protein (NEGATIVE) mg/dL Urine Glucose (UA) (NEGATIVE) mg/dL Urine Ketones (NEGATIVE) mg/dL Urine Occult Blood (NEGATIVE) Urine Nitrite (NEGATIVE) Urine Bilirubin (NEGATIVE) Urine Ictotest Urine Urobilinogen (<2.0) EU/dL Ur Leukocyte Esterase (NEGATIVE) Urine RBC (0-2/HPF) Urine WBC (0-5/HPF) Ur Epithelial Cells (NONE-FEW) Urine Bacteria (NEGATIVE) Acetaminophen ug/mL H. pylori IgG Antibody (NEG) Med Orders - Current: Current Medications Hydromorphone HCl (Dilaudid) 1 mg IVPUSH Q2H PRN PRN Reason: Pain Last Admin: 12/01/18 09:42 Dose: 1 mg Sodium Chloride (Normal Saline) 1,000 mls @ 125 mls/hr IV ASDIRECTED JOYA Last Admin: 12/01/18 08:55 Dose: 125 mls/hr Ciprofloxacin/Dextrose 400 mg/ (Premix) 200 mls @ 200 mls/hr IV Q12H JOYA Last Admin: 12/01/18 10:25 Dose: 200 mls/hr Metronidazole 500 mg/ Premix 100 mls @ 100 mls/hr IV Q6H [facility] Sodium Chloride (Saline Flush) 10 ml FLUSH ASDIRECTED PRN PRN Reason: Keep Vein Open Sodium Chloride (Saline Flush) 2.5 ml FLUSH ASDIRECTED PRN PRN Reason: Keep Vein Open Discontinued Medications Al Hydroxide/Mg Hydroxide 15 ml/ Metoclopramide HCl 5 mg/Lidocaine HCl 5 ml 0 ml PO ONETIME ONE Stop: 11/30/18 16:43 Last Admin: 11/30/18 17:14 Dose: 1 each Famotidine (Pepcid) 20 mg IVPUSH ONETIME ONE Stop: 11/30/18 16:43 Last Admin: 11/30/18 17:05 Dose: 20 mg Sodium Chloride (Normal Saline) 1,000 mls @ 999 mls/hr IV STAT ONE Stop: 11/30/18 17:41 Last Admin: 11/30/18 16:59 Dose: 999 mls/hr Sodium Chloride (Normal Saline) 1,000 mls @ 999 mls/hr IV BOLUS ONE Stop: 11/30/18 21:00 Last Admin: 11/30/18 20:50 Dose: 999 mls/hr Metronidazole 500 mg/ Premix 100 mls @ 100 mls/hr IV Q6HR JOYA Iopamidol (Isovue Multipack-370 (76%)) 100 ml IVPUSH ONETIME STA Stop: 11/30/18 17:43 Last Admin: 11/30/18 17:42 Dose: 100 ml Morphine Sulfate (Morphine) 4 mg IVPUSH ONETIME ONE Stop: 11/30/18 17:47 Last Admin: 11/30/18 17:52 Dose: 4 mg Ondansetron HCl (Zofran) 4 mg IVPUSH ONETIME ONE Stop: 11/30/18 16:42 Last Admin: 11/30/18 17:07 Dose: 4 mg - Exam GI/Abdominal Exam: Normal Bowel Sounds, Soft, Non-Tender, No Distention (lft minimally trend down, not much) - Problem List Review Problem List Initiated/Reviewed/Updated: Yes - My Orders Last 24 Hours: Active Orders 24 hr Category Date Time Status Admission Status [Patient Status] [ADT] Stat ADT 11/30/18 18:16 Active Antiembolic Devices [RC] Q6H Care 11/30/18 19:52 Active Oxygen Therapy [RC] PRN Care 11/30/18 19:50 Active Up ad Yajaira [RC] ASDIRECTED Care 11/30/18 19:50 Active VTE/DVT Education [RC] PER UNIT ROUTINE Care 11/30/18 19:50 Active Vital Signs [RC] Q4H Care 11/30/18 19:50 Active Abdomen Ltd [US] Routine Exams 11/30/18 19:26 Stop Req Abdomen w Cont [MR] Routine Exams 11/30/18 19:49 Ordered CBC WITH AUTO DIFF [HEME] AM Lab 12/02/18 05:11 Ordered COMPREHENSIVE METABOLIC PN,CMP [CHEM] AM Lab 12/02/18 05:11 Ordered Ciprofloxacin in D5W [Cipro in D5W 400 MG/200 ML] 400 Med 12/01/18 10:15 Active mg Premix Bag 1 bag IV Q12H HYDROmorphone [Dilaudid] Med 11/30/18 19:55 Active 1 mg IVPUSH Q2H PRN Sodium Chloride 0.9% [Normal Saline] 1,000 ml Med 12/01/18 08:45 Active IV ASDIRECTED Sodium Chloride 0.9% [Saline Flush] Med 11/30/18 16:28 Active 10 ml FLUSH ASDIRECTED PRN Sodium Chloride 0.9% [Saline Flush] Med 11/30/18 16:28 Active 2.5 ml FLUSH ASDIRECTED PRN metroNIDAZOLE/Normal Saline [Flagyl 500 MG in NS 100 ML Med 12/01/18 10:15 Active ] 500 mg Premix Bag 1 bag IV Q6H Saline Lock Insert [OM.PC] Stat Oth 11/30/18 16:28 Ordered Sequential Compression Device [OM.PC] Per Unit Routine Oth 11/30/18 19:50 Ordered Resuscitation Status Routine Resus Stat 11/30/18 19:50 Ordered Medication Orders Hydromorphone HCl (Dilaudid) 1 mg IVPUSH Q2H PRN PRN Reason: Pain Last Admin: 12/01/18 09:42 Dose: 1 mg Admin: 12/01/18 07:26 Dose: 1 mg Admin: 12/01/18 03:50 Dose: 1 mg Admin: 11/30/18 23:28 Dose: 1 mg Admin: 11/30/18 20:30 Dose: 1 mg Sodium Chloride (Normal Saline) 1,000 mls @ 125 mls/hr IV ASDIRECTED JOYA Last Admin: 12/01/18 08:55 Dose: 125 mls/hr Ciprofloxacin/Dextrose 400 mg/ (Premix) 200 mls @ 200 mls/hr IV Q12H JOYA Last Admin: 12/01/18 10:25 Dose: 200 mls/hr Metronidazole 500 mg/ Premix 100 mls @ 100 mls/hr IV Q6H JOYA Sodium Chloride (Saline Flush) 10 ml FLUSH ASDIRECTED PRN PRN Reason: Keep Vein Open Sodium Chloride (Saline Flush) 2.5 ml FLUSH ASDIRECTED PRN PRN Reason: Keep Vein Open - Assessment Assessment (Free Text/Narrative):: clinically not improved; US > no stones or obstructing lesion; confirmed ductal dilation; await MCRP; - Plan Plan (Free Text/Narrative):: clinically not improved; US > no stones or obstructing lesion; confirmed ductal dilation; await MCRP;
[2018-12-01 11:40] LABS: BILIRUBIN INDIRECT 1.01
--- NOTE | 2018-12-01 11:59 | PCM.SN ---
- Free Text/Narrative Note: Per Dr. Mcguire's recommendation I spoke with GI specialist in [place]. They recommended MRCP on Sunday,starting Zosyn and calling back with MRCP results.
[2018-12-01] MEDS: Piperacillin/Tazobactam 3.375 GM in Sodium Chloride 0.9% 50 ML IV SCH ×2 (12:40→17:45)
[2018-12-01] MEDS ORDERED: Ibuprofen 200 MG Tab PO PRN (17:21)
[2018-12-02] MEDS: Piperacillin/Tazobactam 3.375 GM in Sodium Chloride 0.9% 50 ML IV SCH ×5 (00:41→23:05)
[2018-12-02] MEDS: Sodium Chloride 0.9% 1,000 ML IV SCH ×3 (02:37→23:07)
[2018-12-02 06:01] LABS: CHLORIDE,CL 105 mmol/L (98-107); SODIUM,NA 138 mmol/L (136-148)
--- NOTE | 2018-12-02 08:13 | PCM.PN ---
- General Info Date of Service: 12/02/18 Subjective Update: Patient reports he is doing better, he no longer has abdominal pain. He denies chest pain, SOB, nausea, or vomiting. He has been NPO since midnight. - Review of Systems General: Reports: No Symptoms HEENT: Reports: No Symptoms Pulmonary: Reports: No Symptoms Cardiovascular: Reports: No Symptoms Gastrointestinal: Reports: No Symptoms Genitourinary: Reports: No Symptoms Musculoskeletal: Reports: No Symptoms Skin: Reports: No Symptoms Neurological: Reports: No Symptoms Psychiatric: Reports: No Symptoms - Patient Data Vitals - Most Recent: Last Vital Signs Temp 97.5 F 12/02/18 04:00 Pulse 79 12/02/18 04:00 Resp 16 12/02/18 04:00 BP 138/85 12/02/18 04:00 Pulse Ox 95 12/02/18 04:00 Weight - Most Recent: 85.4 kg I&O - Last 24 Hours: Intake & Output 12/01/18 12/02/18 12/02/18 22:59 06:59 14:59 Intake Total 1020 1432 Output Total 1150 2100 Balance -130 -668 Lab Results Last 24 Hours: Laboratory Results - last 24 hr 12/01/18 12/02/18 12/02/18 Range/Units 04:53 05:06 05:06 WBC 6.40 (4.0-11.0) K/uL RBC 4.97 (4.50-5.90) M/uL Hgb 14.5 (13.0-17.0) g/dL Hct 41.9 (38.0-50.0) % MCV 84.3 (80.0-98.0) fL MCH 29.2 (27.0-32.0) pg MCHC 34.6 (31.0-37.0) g/dL RDW Std Deviation 42.6 (28.0-62.0) fl RDW Coeff of Marisa 14 (11.0-15.0) % Plt Count 172 (150-400) K/uL MPV 9.10 (7.40-12.00) fL Neut % (Auto) 56.0 (48.0-80.0) % Lymph % (Auto) 23.8 (16.0-40.0) % [place] % (Auto) 18.8 H (0.0-15.0) % Eos % (Auto) 1.1 (0.0-7.0) % Baso % (Auto) 0.3 (0.0-1.5) % Neut # (Auto) 3.6 (1.4-5.7) K/uL Lymph # (Auto) 1.5 (0.6-2.4) K/uL [place] # (Auto) 1.2 H (0.0-0.8) K/uL Eos # (Auto) 0.1 (0.0-0.7) K/uL Baso # (Auto) 0.0 (0.0-0.1) K/uL Nucleated RBC % 0.0 /100WBC Nucleated RBCs # 0 K/uL Sodium 138 (136-148) mmol/L Potassium 3.8 (3.5-5.1) mmol/L Chloride 105 (98-107) mmol/L Carbon Dioxide 26.9 (21.0-32.0) mmol/L BUN 8 (7.0-18.0) mg/dL Creatinine 0.8 (0.8-1.3) mg/dL Est Cr Clr Drug Dosing 146.99 mL/min Estimated GFR (MDRD) > 60.0 ml/min Glucose 104 (74-106) mg/dL Calcium 8.3 L (8.5-10.1) mg/dL Total Bilirubin 5.2 H 2.8 H (0.2-1.0) mg/dL Direct Bilirubin 4.19 H (0.0-0.5) mg/dL Indirect Bilirubin 1.01 AST 71 H (15-37) IU/L ALT 479 H (14-63) IU/L Alkaline Phosphatase 197 H (46-116) U/L Total Protein 6.7 (6.4-8.2) g/dL Albumin 2.9 L (3.4-5.0) g/dL Globulin 3.8 (2.6-4.0) g/dL Albumin/Globulin Ratio 0.8 L (0.9-1.6) Med Orders - Current: Current Medications Hydromorphone HCl (Dilaudid) 1 mg IVPUSH Q2H PRN PRN Reason: Pain Last Admin: 12/01/18 09:42 Dose: 1 mg Sodium Chloride (Normal Saline) 1,000 mls @ 125 mls/hr IV ASDIRECTED JOYA Last Admin: 12/02/18 02:37 Dose: 125 mls/hr Piperacillin Sod/Tazobactam (Sod 3.375 gm/ Sodium Chloride) 50 mls @ 100 mls/ hr IV Q6H [facility] Last Admin: 12/02/18 05:31 Dose: 100 mls/hr Ibuprofen (Motrin) 200 mg PO Q6H PRN PRN Reason: Pain Last Admin: 12/01/18 17:50 Dose: 200 mg Sodium Chloride (Saline Flush) 10 ml FLUSH ASDIRECTED PRN PRN Reason: Keep Vein Open Sodium Chloride (Saline Flush) 2.5 ml FLUSH ASDIRECTED PRN PRN Reason: Keep Vein Open Discontinued Medications Al Hydroxide/Mg Hydroxide 15 ml/ Metoclopramide HCl 5 mg/Lidocaine HCl 5 ml 0 ml PO ONETIME ONE Stop: 11/30/18 16:43 Last Admin: 11/30/18 17:14 Dose: 1 each Famotidine (Pepcid) 20 mg IVPUSH ONETIME ONE Stop: 11/30/18 16:43 Last Admin: 11/30/18 17:05 Dose: 20 mg Sodium Chloride (Normal Saline) 1,000 mls @ 999 mls/hr IV STAT ONE Stop: 11/30/18 17:41 Last Admin: 11/30/18 16:59 Dose: 999 mls/hr Sodium Chloride (Normal Saline) 1,000 mls @ 999 mls/hr IV BOLUS ONE Stop: 11/30/18 21:00 Last Admin: 11/30/18 20:50 Dose: 999 mls/hr Ciprofloxacin/Dextrose 400 mg/ (Premix) 200 mls @ 200 mls/hr IV Q12H [facility] Last Admin: 12/01/18 10:25 Dose: 200 mls/hr Metronidazole 500 mg/ Premix 100 mls @ 100 mls/hr IV Q6HR JOYA Metronidazole 500 mg/ Premix 100 mls @ 100 mls/hr IV Q6H [facility] Last Admin: 12/01/18 11:35 Dose: 100 mls/hr Iopamidol (Isovue Multipack-370 (76%)) 100 ml IVPUSH ONETIME STA Stop: 11/30/18 17:43 Last Admin: 11/30/18 17:42 Dose: 100 ml Morphine Sulfate (Morphine) 4 mg IVPUSH ONETIME ONE Stop: 11/30/18 17:47 Last Admin: 11/30/18 17:52 Dose: 4 mg Ondansetron HCl (Zofran) 4 mg IVPUSH ONETIME ONE Stop: 11/30/18 16:42 Last Admin: 11/30/18 17:07 Dose: 4 mg - Exam General: Alert, Oriented Lungs: Clear to Auscultation, Normal Respiratory Effort Cardiovascular: Regular Rate, Regular Rhythm GI/Abdominal Exam: Normal Bowel Sounds, Soft, Non-Tender Extremities: No Pedal Edema Skin: Warm, Dry, Intact Neurological: No New Focal Deficit Psy/Mental Status: Alert, Normal Affect, Normal Mood - Problem List Review Problem List Initiated/Reviewed/Updated: Yes - Plan Plan:: 1. Abdominal pain with jaundice- improving 2. transaminitis- improving 3. Hyperbilirubinemia- improving Plan- labs improving and patient no longer has any abdominal pain. MRCP scheduled for today. Dr. Mcguire consulted. Provider spoke to GI specialist in [place] yesterday who recommended the MRCP and starting the patient on Zosyn. Will continue Zosyn. Hepatitis panel pending.
[2018-12-02] MEDS ORDERED: oxyCODONE 5 MG Tab PO PRN (10:23)
--- NOTE | 2018-12-02 15:53 | MR ---
EXAMINATION: MRI abdomen/MRCP HISTORY: MRCP COMPARISON: Ultrasound dated 12/01/2018, CT dated 11/30/2018 TECHNIQUE: Multiplanar multisequence imaging obtained through the abdomen without contrast. MRCP protocol was used. FINDINGS: The liver and spleen are normal in signal without a focal mass. Adrenal glands and pancreas appear normal. There is pericholecystic fluid noted. Tiny cholelithiasis are noted. The common bile duct is mildly prominent measuring up to 8 mm. Severe slightly decreased in comparison to the recent CT. There is a trace periportal edema noted. No definite filling defect identified within the common bile duct. The kidneys are normal in signal without evidence of hydronephrosis. No retroperitoneal lymphadenopathy. The visualized large and small bowel are normal in caliber without evidence of obstruction. No abnormal bone marrow signal. IMPRESSION: 1. Tiny cholelithiasis with pericholecystic fluid and periportal edema. 2. The common bile duct is prominent in size measuring 8 mm however this appears to slightly decreased in size relative to the recent CT. This may suggest a recently passed choledocholithiasis. 3. No filling defect noted within the cystic or common bile duct.
[2018-12-03] MEDS: Piperacillin/Tazobactam 3.375 GM in Sodium Chloride 0.9% 50 ML IV SCH (04:58)
[2018-12-03 05:59] LABS: CHLORIDE,CL 105 mmol/L (98-107); SODIUM,NA 140 mmol/L (136-148)
[2018-12-03 08:10] VITALS: BP 127/71
--- NOTE | 2018-12-03 09:08 | CONS ---
DATE OF CONSULTATION: 11/30/2018 DATE OF : 1980 PRIMARY CARE PHYSICIAN: Bell Villagran NP CONCERNING QUESTION: Jaundice. HISTORY OF PRESENT ILLNESS: The patient is a 38-year-old gentleman, born and raised in [place], complained over 1 year history of on and off severe abdominal pain, 10/10 on the pain scale when happens, and nausea and vomiting. The patient remarked it has been going on for 1 year and this usually is postprandial and also, after a while, it will go away. However, at this time, it does not go away and also noticed the patient turned yellow and also the patient complaining his pee-pee is bright yellow and glowing under sunlight, does not know what it means. In the emergency room workup revealed a total bilirubin of 4.5 and in view of intrahepatic and extrahepatic ductal dilatation and mild common duct dilatation, no stone, the patient was admitted for further workup, and Surgery was consulted. PAST MEDICAL HISTORY: Significant for no diabetes, AL, CVA, or hypertension. ALLERGIES: Please refer to Nursing for details. MEDICATIONS: Please refer to Nursing for details. PAST SURGICAL HISTORY: No abdominal surgery. FAMILY HISTORY: Noncontributory. REVIEW OF SYSTEMS: Same as history of present illness. PHYSICAL EXAMINATION: GENERAL: A very pleasant gentleman, in no acute distress. HEENT: Normocephalic and atraumatic. Sclerae are icteric. LUNGS: Clear to auscultation. HEART: Regular rhythm. ABDOMEN: Soft, nondistended. No pulsating tender midline abdominal structure. No hernia appreciated. Nontender on examination. LABORATORY DATA: White count 7. Total bilirubin is 4.5. IMAGING: CAT scan as alluded to in history of present illness. IMPRESSION: Painful jaundice, possible passed stone. However, elevated total bilirubin is not common and also CAT scan failed to catch a stone. We will put on n.p.o. overnight and check for hepatitis panel and also get the ultrasound, and if none of this shows anything, the patient would benefit to have MRCP on Sunday and eventually if this all turns out to be negative, the patient will need to be transferred to have ERCP to look for biliary tree disease. We will repeat the blood work tomorrow to check his liver function tests. We will follow the patient with you. LIZA / ELLIS /[id number]
--- NOTE | 2018-12-03 09:09 | PCM.DCSUM1 ---
Discharge Summary - Hospital Course HPI Initial Comments: Admission Date: Discharge Date: Admission Diagnosis: Discharge Diagnosis: Procedures: None Consults: None Hospital Course: Disposition: The patient is a 38-year-old male who presented to the ER with abdominal pain and jaundice. In the ER workup included lab work that showed an elevated bilirubin, elevated AST, LT an alkaline phosphatase. A CT was done in the emergency room showed dilation of intrahepatic and extrahepatic bile ducts with a normal gallbladder. They recommended an ultrasound. The patient was admitted to the medical surgical floor. An ultrasound was obtained that showed the dramatic and extrahepatic biliary duct dilation without obstructing stone. They did not see any stones in the gallbladder but did see a polyp in the gallbladder. Dr. Blackman was consulted of general surgery recommended getting an MRCP as the bilirubin and liver function tests, worse on the second day of admission. Dr. Blackman recommended an MRCP and that was placed the patient on Cipro , Flagyl. MRCP was not able to be done until Sunday. On 310. A call was placed to the GI specialist in [place] recommended MRCP as well and recommended switching to Zosyn. GI, in [place] stated that once MRCP was back to call back in. Further recommendations will be given. The MRCP. On the showed, common bile duct dilation 8 mm appeared to be decreased from previous exam. Possibly due to a stone in and saw a tiny stones with. Cholestatic fluid and periportal edema. We tend spoke to the GI specialist in [place] again who recommended a laparoscopic cholecystectomy with intraoperative cholangiogram but did not think he needed an ERCP at this time. They did not believe that this was an emergent surgical case. Discharge Condition: Discharge Instructions: Discharge Medications: Follow-up: - Discharge Data Discharge Date: 12/03/18 Discharge Disposition: Home, Self-Care 01 Condition: Undetermined - Patient Summary/Data Consults: Consultations 12/03/18 08:41 Consult to Physician [CONS] Routine - Discharge Plan *PRESCRIPTION DRUG MONITORING PROGRAM REVIEWED*: No *COPY OF PRESCRIPTION DRUG MONITORING REPORT IN PATIENT BENITA: No Prescriptions/Med Rec: Ciprofloxacin HCl [Cipro] 500 mg PO BID 7 Days #14 tablet metroNIDAZOLE [Flagyl] 500 mg PO Q8H 7 Days #21 tab Home Medications: Home Meds Ciprofloxacin HCl [Cipro] 500 mg PO BID 7 Days #14 tablet 12/03/18 [Rx] metroNIDAZOLE [Flagyl] 500 mg PO Q8H 7 Days #21 tab 12/03/18 [Rx] Patient Handouts: Cholelithiasis, [id number], Ciprofloxacin tablets, Metronidazole tablets or capsules Referrals: [facility] [Outside] John Mcguire MD [Physician] - 12/05/18 9:30 am Bell Villagran NP [Primary Care Provider] - 12/12/18 9:45 am - Discharge Summary/Plan Comment DC Time >30 min.: No - Patient Data Vitals - Most Recent: Last Vital Signs Temp 98.1 F 12/03/18 08:00 Pulse 78 12/03/18 08:00 Resp 14 12/03/18 08:00 BP 127/71 12/03/18 08:00 Pulse Ox 94 L 12/03/18 08:00 Weight - Most Recent: 85.4 kg I&O - Last 24 hours: Intake & Output 12/02/18 12/03/18 12/03/18 22:59 06:59 14:59 Intake Total 1098 1280 Output Total 1475 1050 Balance -377 230 Lab Results - Last 24 hrs: Laboratory Results - last 24 hr 12/03/18 12/03/18 Range/Units 05:10 05:10 WBC 7.33 (4.0-11.0) K/uL RBC 4.69 (4.50-5.90) M/uL Hgb 13.7 (13.0-17.0) g/dL Hct 39.7 (38.0-50.0) % MCV 84.6 (80.0-98.0) fL MCH 29.2 (27.0-32.0) pg MCHC 34.5 (31.0-37.0) g/dL RDW Std Deviation 42.7 (28.0-62.0) fl RDW Coeff of Marisa 14 (11.0-15.0) % Plt Count 195 (150-400) K/uL MPV 9.30 (7.40-12.00) fL Neut % (Auto) 60.0 (48.0-80.0) % Lymph % (Auto) 23.7 (16.0-40.0) % [place] % (Auto) 14.3 (0.0-15.0) % Eos % (Auto) 1.6 (0.0-7.0) % Baso % (Auto) 0.4 (0.0-1.5) % Neut # (Auto) 4.4 (1.4-5.7) K/uL Lymph # (Auto) 1.7 (0.6-2.4) K/uL [place] # (Auto) 1.1 H (0.0-0.8) K/uL Eos # (Auto) 0.1 (0.0-0.7) K/uL Baso # (Auto) 0.0 (0.0-0.1) K/uL Nucleated RBC % 0.0 /100WBC Nucleated RBCs # 0 K/uL Sodium 140 (136-148) mmol/L Potassium 4.1 (3.5-5.1) mmol/L Chloride 105 (98-107) mmol/L Carbon Dioxide 25.5 (21.0-32.0) mmol/L BUN 10 (7.0-18.0) mg/dL Creatinine 0.9 (0.8-1.3) mg/dL Est Cr Clr Drug Dosing 130.66 mL/min Estimated GFR (MDRD) > 60.0 ml/min Glucose 92 (74-106) mg/dL Calcium 8.1 L (8.5-10.1) mg/dL Total Bilirubin 1.8 H (0.2-1.0) mg/dL AST 87 H (15-37) IU/L ALT 391 H (14-63) IU/L Alkaline Phosphatase 175 H (46-116) U/L Total Protein 6.6 (6.4-8.2) g/dL Albumin 2.8 L (3.4-5.0) g/dL Globulin 3.8 (2.6-4.0) g/dL Albumin/Globulin Ratio 0.7 L (0.9-1.6) Med Orders - Current: Current Medications Hydromorphone HCl (Dilaudid) 1 mg IVPUSH Q2H PRN PRN Reason: Pain Last Admin: 12/01/18 09:42 Dose: 1 mg Sodium Chloride (Normal Saline) 1,000 mls @ 125 mls/hr IV ASDIRECTED JOYA Last Admin: 12/02/18 23:07 Dose: 125 mls/hr Ibuprofen (Motrin) 200 mg PO Q6H PRN PRN Reason: Pain Last Admin: 12/01/18 17:50 Dose: 200 mg Sodium Chloride (Saline Flush) 10 ml FLUSH ASDIRECTED PRN PRN Reason: Keep Vein Open Sodium Chloride (Saline Flush) 2.5 ml FLUSH ASDIRECTED PRN PRN Reason: Keep Vein Open Discontinued Medications Al Hydroxide/Mg Hydroxide 15 ml/ Metoclopramide HCl 5 mg/Lidocaine HCl 5 ml 0 ml PO ONETIME ONE Stop: 11/30/18 16:43 Last Admin: 11/30/18 17:14 Dose: 1 each Famotidine (Pepcid) 20 mg IVPUSH ONETIME ONE Stop: 11/30/18 16:43 Last Admin: 11/30/18 17:05 Dose: 20 mg Sodium Chloride (Normal Saline) 1,000 mls @ 999 mls/hr IV STAT ONE Stop: 11/30/18 17:41 Last Admin: 11/30/18 16:59 Dose: 999 mls/hr Sodium Chloride (Normal Saline) 1,000 mls @ 999 mls/hr IV BOLUS ONE Stop: 11/30/18 21:00 Last Admin: 11/30/18 20:50 Dose: 999 mls/hr Ciprofloxacin/Dextrose 400 mg/ (Premix) 200 mls @ 200 mls/hr IV Q12H JOYA Last Admin: 12/01/18 10:25 Dose: 200 mls/hr Metronidazole 500 mg/ Premix 100 mls @ 100 mls/hr IV Q6HR JOYA Metronidazole 500 mg/ Premix 100 mls @ 100 mls/hr IV Q6H JOYA Last Admin: 12/01/18 11:35 Dose: 100 mls/hr Piperacillin Sod/Tazobactam (Sod 3.375 gm/ Sodium Chloride) 50 mls @ 100 mls/ hr IV Q6H JOYA Last Admin: 12/03/18 04:58 Dose: 100 mls/hr Iopamidol (Isovue Multipack-370 (76%)) 100 ml IVPUSH ONETIME STA Stop: 11/30/18 17:43 Last Admin: 11/30/18 17:42 Dose: 100 ml Morphine Sulfate (Morphine) 4 mg IVPUSH ONETIME ONE Stop: 11/30/18 17:47 Last Admin: 11/30/18 17:52 Dose: 4 mg Ondansetron HCl (Zofran) 4 mg IVPUSH ONETIME ONE Stop: 11/30/18 16:42 Last Admin: 11/30/18 17:07 Dose: 4 mg Oxycodone HCl (Oxycodone) 5 mg PO Q4H PRN PRN Reason: Pain
--- NOTE | 2018-12-03 10:36 | PCM.SURGPN ---
- General Info Date of Service: 12/03/18 Functional Status: Reports: Pain Controlled - Review of Systems General: Reports: No Symptoms Gastrointestinal: Reports: No Symptoms (no abd pain X 2 days; MRCP showed a tiny stone in gb) - Patient Data Vitals - Most Recent: Last Vital Signs Temp 98.1 F 12/03/18 08:00 Pulse 78 12/03/18 08:00 Resp 14 12/03/18 08:00 BP 127/71 12/03/18 08:00 Pulse Ox 94 L 12/03/18 08:00 Weight - Most Recent: 188 lb 4.396 oz I&O - Last 24 Hours: Intake & Output 12/02/18 12/03/18 12/03/18 22:59 06:59 14:59 Intake Total 1098 1280 Output Total 1475 1050 Balance -377 230 Lab Results Last 24 Hrs: Laboratory Results - last 24 hr 12/03/18 12/03/18 Range/Units 05:10 05:10 WBC 7.33 (4.0-11.0) K/uL RBC 4.69 (4.50-5.90) M/uL Hgb 13.7 (13.0-17.0) g/dL Hct 39.7 (38.0-50.0) % MCV 84.6 (80.0-98.0) fL MCH 29.2 (27.0-32.0) pg MCHC 34.5 (31.0-37.0) g/dL RDW Std Deviation 42.7 (28.0-62.0) fl RDW Coeff of Marisa 14 (11.0-15.0) % Plt Count 195 (150-400) K/uL MPV 9.30 (7.40-12.00) fL Neut % (Auto) 60.0 (48.0-80.0) % Lymph % (Auto) 23.7 (16.0-40.0) % [place] % (Auto) 14.3 (0.0-15.0) % Eos % (Auto) 1.6 (0.0-7.0) % Baso % (Auto) 0.4 (0.0-1.5) % Neut # (Auto) 4.4 (1.4-5.7) K/uL Lymph # (Auto) 1.7 (0.6-2.4) K/uL [place] # (Auto) 1.1 H (0.0-0.8) K/uL Eos # (Auto) 0.1 (0.0-0.7) K/uL Baso # (Auto) 0.0 (0.0-0.1) K/uL Nucleated RBC % 0.0 /100WBC Nucleated RBCs # 0 K/uL Sodium 140 (136-148) mmol/L Potassium 4.1 (3.5-5.1) mmol/L Chloride 105 (98-107) mmol/L Carbon Dioxide 25.5 (21.0-32.0) mmol/L BUN 10 (7.0-18.0) mg/dL Creatinine 0.9 (0.8-1.3) mg/dL Est Cr Clr Drug Dosing 130.66 mL/min Estimated GFR (MDRD) > 60.0 ml/min Glucose 92 (74-106) mg/dL Calcium 8.1 L (8.5-10.1) mg/dL Total Bilirubin 1.8 H (0.2-1.0) mg/dL AST 87 H (15-37) IU/L ALT 391 H (14-63) IU/L Alkaline Phosphatase 175 H (46-116) U/L Total Protein 6.6 (6.4-8.2) g/dL Albumin 2.8 L (3.4-5.0) g/dL Globulin 3.8 (2.6-4.0) g/dL Albumin/Globulin Ratio 0.7 L (0.9-1.6) Med Orders - Current: Current Medications Hydromorphone HCl (Dilaudid) 1 mg IVPUSH Q2H PRN PRN Reason: Pain Last Admin: 12/01/18 09:42 Dose: 1 mg Sodium Chloride (Normal Saline) 1,000 mls @ 125 mls/hr IV ASDIRECTED JOYA Last Admin: 12/02/18 23:07 Dose: 125 mls/hr Ibuprofen (Motrin) 200 mg PO Q6H PRN PRN Reason: Pain Last Admin: 12/01/18 17:50 Dose: 200 mg Sodium Chloride (Saline Flush) 10 ml FLUSH ASDIRECTED PRN PRN Reason: Keep Vein Open Sodium Chloride (Saline Flush) 2.5 ml FLUSH ASDIRECTED PRN PRN Reason: Keep Vein Open Discontinued Medications Al Hydroxide/Mg Hydroxide 15 ml/ Metoclopramide HCl 5 mg/Lidocaine HCl 5 ml 0 ml PO ONETIME ONE Stop: 11/30/18 16:43 Last Admin: 11/30/18 17:14 Dose: 1 each Famotidine (Pepcid) 20 mg IVPUSH ONETIME ONE Stop: 11/30/18 16:43 Last Admin: 11/30/18 17:05 Dose: 20 mg Sodium Chloride (Normal Saline) 1,000 mls @ 999 mls/hr IV STAT ONE Stop: 11/30/18 17:41 Last Admin: 11/30/18 16:59 Dose: 999 mls/hr Sodium Chloride (Normal Saline) 1,000 mls @ 999 mls/hr IV BOLUS ONE Stop: 11/30/18 21:00 Last Admin: 11/30/18 20:50 Dose: 999 mls/hr Ciprofloxacin/Dextrose 400 mg/ (Premix) 200 mls @ 200 mls/hr IV Q12H JOYA Last Admin: 12/01/18 10:25 Dose: 200 mls/hr Metronidazole 500 mg/ Premix 100 mls @ 100 mls/hr IV Q6HR JOYA Metronidazole 500 mg/ Premix 100 mls @ 100 mls/hr IV Q6H JOYA Last Admin: 12/01/18 11:35 Dose: 100 mls/hr Piperacillin Sod/Tazobactam (Sod 3.375 gm/ Sodium Chloride) 50 mls @ 100 mls/ hr IV Q6H JOYA Last Admin: 12/03/18 04:58 Dose: 100 mls/hr Iopamidol (Isovue Multipack-370 (76%)) 100 ml IVPUSH ONETIME STA Stop: 11/30/18 17:43 Last Admin: 11/30/18 17:42 Dose: 100 ml Morphine Sulfate (Morphine) 4 mg IVPUSH ONETIME ONE Stop: 11/30/18 17:47 Last Admin: 11/30/18 17:52 Dose: 4 mg Ondansetron HCl (Zofran) 4 mg IVPUSH ONETIME ONE Stop: 11/30/18 16:42 Last Admin: 11/30/18 17:07 Dose: 4 mg Oxycodone HCl (Oxycodone) 5 mg PO Q4H PRN PRN Reason: Pain - Exam GI/Abdominal Exam: Normal Bowel Sounds, Soft, Non-Tender - Problem List Review Problem List Initiated/Reviewed/Updated: Yes - My Orders Last 24 Hours: Active Orders 24 hr Category Date Time Status Notify Provider Consults [RC] ASDIRECTED Care 12/03/18 08:43 Active Consult to Physician [CONS] Routine Cons 12/03/18 08:41 Active Low Fat Diet [DIET] Diet 12/03/18 Breakfast Active Medication Orders Hydromorphone HCl (Dilaudid) 1 mg IVPUSH Q2H PRN PRN Reason: Pain Last Admin: 12/01/18 09:42 Dose: 1 mg Admin: 12/01/18 07:26 Dose: 1 mg Admin: 12/01/18 03:50 Dose: 1 mg Admin: 11/30/18 23:28 Dose: 1 mg Admin: 11/30/18 20:30 Dose: 1 mg Sodium Chloride (Normal Saline) 1,000 mls @ 125 mls/hr IV ASDIRECTED JOYA Last Admin: 12/02/18 23:07 Dose: 125 mls/hr Infusion: 12/02/18 20:08 Dose: 125 mls/hr Admin: 12/02/18 12:08 Dose: 125 mls/hr Infusion: 12/02/18 10:37 Dose: 125 mls/hr Admin: 12/02/18 02:37 Dose: 125 mls/hr Infusion: 12/02/18 02:37 Dose: 125 mls/hr Admin: 12/01/18 18:45 Dose: 125 mls/hr Infusion: 12/01/18 16:55 Dose: 125 mls/hr Admin: 12/01/18 08:55 Dose: 125 mls/hr Ibuprofen (Motrin) 200 mg PO Q6H PRN PRN Reason: Pain Last Admin: 12/01/18 17:50 Dose: 200 mg Sodium Chloride (Saline Flush) 10 ml FLUSH ASDIRECTED PRN PRN Reason: Keep Vein Open Sodium Chloride (Saline Flush) 2.5 ml FLUSH ASDIRECTED PRN PRN Reason: Keep Vein Open - Assessment Assessment (Free Text/Narrative):: Resolving abd pain; mrcp > one tiny stone; LFT remained elevated today, but regressing, trending in the right direction; ok to start po low fat diet, full liquid or regular; and fu w me in a wk to schedule juan jasmine ioc; thanks for the consult and care of this present pt.
--- NOTE | 2018-12-03 10:38 | PCM.SURGPN ---
- General Info Date of Service: 12/02/18 Functional Status: Reports: Pain Controlled (abd pain resolved) - Review of Systems General: Reports: No Symptoms - Patient Data Vitals - Most Recent: Last Vital Signs Temp 98.1 F 12/03/18 08:00 Pulse 78 12/03/18 08:00 Resp 14 12/03/18 08:00 BP 127/71 12/03/18 08:00 Pulse Ox 94 L 12/03/18 08:00 Weight - Most Recent: 188 lb 4.396 oz I&O - Last 24 Hours: Intake & Output 12/02/18 12/03/18 12/03/18 22:59 06:59 14:59 Intake Total 1098 1280 Output Total 1475 1050 Balance -377 230 Lab Results Last 24 Hrs: Laboratory Results - last 24 hr 12/03/18 12/03/18 Range/Units 05:10 05:10 WBC 7.33 (4.0-11.0) K/uL RBC 4.69 (4.50-5.90) M/uL Hgb 13.7 (13.0-17.0) g/dL Hct 39.7 (38.0-50.0) % MCV 84.6 (80.0-98.0) fL MCH 29.2 (27.0-32.0) pg MCHC 34.5 (31.0-37.0) g/dL RDW Std Deviation 42.7 (28.0-62.0) fl RDW Coeff of Marisa 14 (11.0-15.0) % Plt Count 195 (150-400) K/uL MPV 9.30 (7.40-12.00) fL Neut % (Auto) 60.0 (48.0-80.0) % Lymph % (Auto) 23.7 (16.0-40.0) % [place] % (Auto) 14.3 (0.0-15.0) % Eos % (Auto) 1.6 (0.0-7.0) % Baso % (Auto) 0.4 (0.0-1.5) % Neut # (Auto) 4.4 (1.4-5.7) K/uL Lymph # (Auto) 1.7 (0.6-2.4) K/uL [place] # (Auto) 1.1 H (0.0-0.8) K/uL Eos # (Auto) 0.1 (0.0-0.7) K/uL Baso # (Auto) 0.0 (0.0-0.1) K/uL Nucleated RBC % 0.0 /100WBC Nucleated RBCs # 0 K/uL Sodium 140 (136-148) mmol/L Potassium 4.1 (3.5-5.1) mmol/L Chloride 105 (98-107) mmol/L Carbon Dioxide 25.5 (21.0-32.0) mmol/L BUN 10 (7.0-18.0) mg/dL Creatinine 0.9 (0.8-1.3) mg/dL Est Cr Clr Drug Dosing 130.66 mL/min Estimated GFR (MDRD) > 60.0 ml/min Glucose 92 (74-106) mg/dL Calcium 8.1 L (8.5-10.1) mg/dL Total Bilirubin 1.8 H (0.2-1.0) mg/dL AST 87 H (15-37) IU/L ALT 391 H (14-63) IU/L Alkaline Phosphatase 175 H (46-116) U/L Total Protein 6.6 (6.4-8.2) g/dL Albumin 2.8 L (3.4-5.0) g/dL Globulin 3.8 (2.6-4.0) g/dL Albumin/Globulin Ratio 0.7 L (0.9-1.6) Med Orders - Current: Current Medications Hydromorphone HCl (Dilaudid) 1 mg IVPUSH Q2H PRN PRN Reason: Pain Last Admin: 12/01/18 09:42 Dose: 1 mg Sodium Chloride (Normal Saline) 1,000 mls @ 125 mls/hr IV ASDIRECTED JOYA Last Admin: 12/02/18 23:07 Dose: 125 mls/hr Ibuprofen (Motrin) 200 mg PO Q6H PRN PRN Reason: Pain Last Admin: 12/01/18 17:50 Dose: 200 mg Sodium Chloride (Saline Flush) 10 ml FLUSH ASDIRECTED PRN PRN Reason: Keep Vein Open Sodium Chloride (Saline Flush) 2.5 ml FLUSH ASDIRECTED PRN PRN Reason: Keep Vein Open Discontinued Medications Al Hydroxide/Mg Hydroxide 15 ml/ Metoclopramide HCl 5 mg/Lidocaine HCl 5 ml 0 ml PO ONETIME ONE Stop: 11/30/18 16:43 Last Admin: 11/30/18 17:14 Dose: 1 each Famotidine (Pepcid) 20 mg IVPUSH ONETIME ONE Stop: 11/30/18 16:43 Last Admin: 11/30/18 17:05 Dose: 20 mg Sodium Chloride (Normal Saline) 1,000 mls @ 999 mls/hr IV STAT ONE Stop: 11/30/18 17:41 Last Admin: 11/30/18 16:59 Dose: 999 mls/hr Sodium Chloride (Normal Saline) 1,000 mls @ 999 mls/hr IV BOLUS ONE Stop: 11/30/18 21:00 Last Admin: 11/30/18 20:50 Dose: 999 mls/hr Ciprofloxacin/Dextrose 400 mg/ (Premix) 200 mls @ 200 mls/hr IV Q12H [facility] Last Admin: 12/01/18 10:25 Dose: 200 mls/hr Metronidazole 500 mg/ Premix 100 mls @ 100 mls/hr IV Q6HR JOYA Metronidazole 500 mg/ Premix 100 mls @ 100 mls/hr IV Q6H [facility] Last Admin: 12/01/18 11:35 Dose: 100 mls/hr Piperacillin Sod/Tazobactam (Sod 3.375 gm/ Sodium Chloride) 50 mls @ 100 mls/ hr IV Q6H [facility] Last Admin: 12/03/18 04:58 Dose: 100 mls/hr Iopamidol (Isovue Multipack-370 (76%)) 100 ml IVPUSH ONETIME STA Stop: 11/30/18 17:43 Last Admin: 11/30/18 17:42 Dose: 100 ml Morphine Sulfate (Morphine) 4 mg IVPUSH ONETIME ONE Stop: 11/30/18 17:47 Last Admin: 11/30/18 17:52 Dose: 4 mg Ondansetron HCl (Zofran) 4 mg IVPUSH ONETIME ONE Stop: 11/30/18 16:42 Last Admin: 11/30/18 17:07 Dose: 4 mg Oxycodone HCl (Oxycodone) 5 mg PO Q4H PRN PRN Reason: Pain - Exam GI/Abdominal Exam: Normal Bowel Sounds, Soft, Non-Tender - Problem List Review Problem List Initiated/Reviewed/Updated: Yes - My Orders Last 24 Hours: Active Orders 24 hr Category Date Time Status Notify Provider Consults [RC] ASDIRECTED Care 12/03/18 08:43 Active Consult to Physician [CONS] Routine Cons 12/03/18 08:41 Active Low Fat Diet [DIET] Diet 12/03/18 Breakfast Active Medication Orders Hydromorphone HCl (Dilaudid) 1 mg IVPUSH Q2H PRN PRN Reason: Pain Last Admin: 12/01/18 09:42 Dose: 1 mg Admin: 12/01/18 07:26 Dose: 1 mg Admin: 12/01/18 03:50 Dose: 1 mg Admin: 11/30/18 23:28 Dose: 1 mg Admin: 11/30/18 20:30 Dose: 1 mg Sodium Chloride (Normal Saline) 1,000 mls @ 125 mls/hr IV ASDIRECTED JOYA Last Admin: 12/02/18 23:07 Dose: 125 mls/hr Infusion: 12/02/18 20:08 Dose: 125 mls/hr Admin: 12/02/18 12:08 Dose: 125 mls/hr Infusion: 12/02/18 10:37 Dose: 125 mls/hr Admin: 12/02/18 02:37 Dose: 125 mls/hr Infusion: 12/02/18 02:37 Dose: 125 mls/hr Admin: 12/01/18 18:45 Dose: 125 mls/hr Infusion: 12/01/18 16:55 Dose: 125 mls/hr Admin: 12/01/18 08:55 Dose: 125 mls/hr Ibuprofen (Motrin) 200 mg PO Q6H PRN PRN Reason: Pain Last Admin: 12/01/18 17:50 Dose: 200 mg Sodium Chloride (Saline Flush) 10 ml FLUSH ASDIRECTED PRN PRN Reason: Keep Vein Open Sodium Chloride (Saline Flush) 2.5 ml FLUSH ASDIRECTED PRN PRN Reason: Keep Vein Open - Assessment Assessment (Free Text/Narrative):: clinically much improved, pain resolved; lft trending down, still elevated; await mrcp - Plan Plan (Free Text/Narrative):: clinically much improved, pain resolved; lft trending down, still elevated; await mrcp
--- NOTE | 2018-12-03 10:54 | PCM.DCSUM1 ---
Discharge Summary - Hospital Course HPI Initial Comments: Admission Date: 11/30/18 Discharge Date: 12/03/18 Admission Diagnosis: 1. Abdominal pain and jaundice 2. transaminitis 3. Hyperbilirubinemia Discharge Diagnosis: 1. Abdominal pain and jaundice-resolved 2. transaminitis-improved 3. Hyperbilirubinemia-improved Procedures: None Consults: Dr. Mcguire- general surgery Hospital Course:The patient is a 38-year-old male who presented to the ER with abdominal pain and jaundice. In the ER workup included lab work that showed an elevated bilirubin, elevated AST, ALT an alkaline phosphatase. A CT was done in the emergency room that showed dilation of intrahepatic and extrahepatic bile ducts with a normal gallbladder. Radiology recommended an ultrasound. The patient was admitted to the medical surgical floor. An ultrasound was obtained that showed the intrahepatic and extrahepatic biliary duct dilation without obstructing stone. They did not see any stones in the gallbladder but did see a polyp in the gallbladder. Dr. Mcguire was consulted of general surgery and he recommended getting an MRCP. He was also placed on Cipro and Flagyl. His labs were trended and initially trended up on the second day but started to improve on the following days. On 12/01, a call was placed to the GI specialist in [place] who also recommended MRCP and recommended switching to Zosyn. They instructed us to call back after we had results from MRCP. MRCP was not available until 12/02. The MRCP showed, common bile duct dilation of 8 mm that appeared to be decreased from previous exam, possibly due to a stone that had passed. It aslo saw tiny stones in the gallbladder with pericholestatic fluid and periportal edema. The patient was no longer having abdominal pain at this point. We then spoke to the GI specialist in [place] again who recommended a laparoscopic cholecystectomy with intraoperative cholangiogram but did not think he needed an ERCP at this time. They did not believe that this was an emergent surgical case. Dr. Mcguire then saw the patient again and recommended advancing the diet. Patient tolerated a low fat diet well. Dr. Mcguire wanted the patient to follow up in the clinic for repeat lab testing and to schedule a outpatient laparoscopic cholecystectomy. By day of discharge patient reported he no longer had any abdominal pain and wanted to go home. Disposition: Home Discharge Condition: Vitals stable, abdominal pain resolved, tolerating oral diet, ambulating without difficulty. Discharge Instructions: low fat diet, avoid alcohol, take medications as prescribed. [facility] fever/chills, chest pain, shortness of breath,abdominal pain, nausea/vomiting, erythema, discharge/ drainage, or not improving as expected. Discharge Medications: Ciprofloxacin HCl [Cipro] 500 mg PO BID 7 Days metroNIDAZOLE [Flagyl] 500 mg PO Q8H 7 Days Follow-up: 1. General Surgery- Dr. Mcguire on 12/05/18 2. PCP- Bell Villagran on 12/12 - Discharge Data Discharge Date: 12/03/18 Discharge Disposition: Home, Self-Care 01 Condition: Undetermined - Patient Summary/Data Consults: Consultations 12/03/18 08:41 Consult to Physician [CONS] Routine - Patient Instructions Diet: No Alcoholic Beverages Diet, Other: low fat Activity: As Tolerated Driving: May Drive Today Showering/Bathing: May Shower Notify Provider of: Fever, Increased Pain, Swelling and Redness, Drainage, Nausea and/or Vomiting Other/Special Instructions: Additional symptoms include chest pain, shortness of breath, abdmoninal pain, nausea/vomiting. - Discharge Plan *PRESCRIPTION DRUG MONITORING PROGRAM REVIEWED*: No *COPY OF PRESCRIPTION DRUG MONITORING REPORT IN PATIENT BENITA: No Prescriptions/Med Rec: Ciprofloxacin HCl [Cipro] 500 mg PO BID 7 Days #14 tablet metroNIDAZOLE [Flagyl] 500 mg PO Q8H 7 Days #21 tab Home Medications: Home Meds Ciprofloxacin HCl [Cipro] 500 mg PO BID 7 Days #14 tablet 12/03/18 [Rx] metroNIDAZOLE [Flagyl] 500 mg PO Q8H 7 Days #21 tab 12/03/18 [Rx] Patient Handouts: Cholelithiasis, [id number], Ciprofloxacin tablets, Metronidazole tablets or capsules Referrals: [facility] [Outside] John Mcguire MD [Physician] - 12/05/18 9:30 am Bell Villagran NP [Primary Care Provider] - 12/12/18 9:45 am - Discharge Summary/Plan Comment DC Time >30 min.: No - Patient Data Vitals - Most Recent: Last Vital Signs Temp 98.1 F 12/03/18 08:00 Pulse 78 12/03/18 08:00 Resp 14 12/03/18 08:00 BP 127/71 12/03/18 08:00 Pulse Ox 94 L 12/03/18 08:00 Weight - Most Recent: 85.4 kg I&O - Last 24 hours: Intake & Output 12/02/18 12/03/18 12/03/18 22:59 06:59 14:59 Intake Total 1098 1280 Output Total 1475 1050 Balance -377 230 Lab Results - Last 24 hrs: Laboratory Results - last 24 hr 12/03/18 12/03/18 Range/Units 05:10 05:10 WBC 7.33 (4.0-11.0) K/uL RBC 4.69 (4.50-5.90) M/uL Hgb 13.7 (13.0-17.0) g/dL Hct 39.7 (38.0-50.0) % MCV 84.6 (80.0-98.0) fL MCH 29.2 (27.0-32.0) pg MCHC 34.5 (31.0-37.0) g/dL RDW Std Deviation 42.7 (28.0-62.0) fl RDW Coeff of Marisa 14 (11.0-15.0) % Plt Count 195 (150-400) K/uL MPV 9.30 (7.40-12.00) fL Neut % (Auto) 60.0 (48.0-80.0) % Lymph % (Auto) 23.7 (16.0-40.0) % Snyder % (Auto) 14.3 (0.0-15.0) % Eos % (Auto) 1.6 (0.0-7.0) % Baso % (Auto) 0.4 (0.0-1.5) % Neut # (Auto) 4.4 (1.4-5.7) K/uL Lymph # (Auto) 1.7 (0.6-2.4) K/uL Snyder # (Auto) 1.1 H (0.0-0.8) K/uL Eos # (Auto) 0.1 (0.0-0.7) K/uL Baso # (Auto) 0.0 (0.0-0.1) K/uL Nucleated RBC % 0.0 /100WBC Nucleated RBCs # 0 K/uL Sodium 140 (136-148) mmol/L Potassium 4.1 (3.5-5.1) mmol/L Chloride 105 (98-107) mmol/L Carbon Dioxide 25.5 (21.0-32.0) mmol/L BUN 10 (7.0-18.0) mg/dL Creatinine 0.9 (0.8-1.3) mg/dL Est Cr Clr Drug Dosing 130.66 mL/min Estimated GFR (MDRD) > 60.0 ml/min Glucose 92 (74-106) mg/dL Calcium 8.1 L (8.5-10.1) mg/dL Total Bilirubin 1.8 H (0.2-1.0) mg/dL AST 87 H (15-37) IU/L ALT 391 H (14-63) IU/L Alkaline Phosphatase 175 H (46-116) U/L Total Protein 6.6 (6.4-8.2) g/dL Albumin 2.8 L (3.4-5.0) g/dL Globulin 3.8 (2.6-4.0) g/dL Albumin/Globulin Ratio 0.7 L (0.9-1.6) Med Orders - Current: Current Medications Hydromorphone HCl (Dilaudid) 1 mg IVPUSH Q2H PRN PRN Reason: Pain Last Admin: 12/01/18 09:42 Dose: 1 mg Sodium Chloride (Normal Saline) 1,000 mls @ 125 mls/hr IV ASDIRECTED JOYA Last Admin: 12/02/18 23:07 Dose: 125 mls/hr Ibuprofen (Motrin) 200 mg PO Q6H PRN PRN Reason: Pain Last Admin: 12/01/18 17:50 Dose: 200 mg Sodium Chloride (Saline Flush) 10 ml FLUSH ASDIRECTED PRN PRN Reason: Keep Vein Open Sodium Chloride (Saline Flush) 2.5 ml FLUSH ASDIRECTED PRN PRN Reason: Keep Vein Open Discontinued Medications Al Hydroxide/Mg Hydroxide 15 ml/ Metoclopramide HCl 5 mg/Lidocaine HCl 5 ml 0 ml PO ONETIME ONE Stop: 11/30/18 16:43 Last Admin: 11/30/18 17:14 Dose: 1 each Famotidine (Pepcid) 20 mg IVPUSH ONETIME ONE Stop: 11/30/18 16:43 Last Admin: 11/30/18 17:05 Dose: 20 mg Sodium Chloride (Normal Saline) 1,000 mls @ 999 mls/hr IV STAT ONE Stop: 11/30/18 17:41 Last Admin: 11/30/18 16:59 Dose: 999 mls/hr Sodium Chloride (Normal Saline) 1,000 mls @ 999 mls/hr IV BOLUS ONE Stop: 11/30/18 21:00 Last Admin: 11/30/18 20:50 Dose: 999 mls/hr Ciprofloxacin/Dextrose 400 mg/ (Premix) 200 mls @ 200 mls/hr IV Q12H JOYA Last Admin: 12/01/18 10:25 Dose: 200 mls/hr Metronidazole 500 mg/ Premix 100 mls @ 100 mls/hr IV Q6HR JOYA Metronidazole 500 mg/ Premix 100 mls @ 100 mls/hr IV Q6H JOYA Last Admin: 12/01/18 11:35 Dose: 100 mls/hr Piperacillin Sod/Tazobactam (Sod 3.375 gm/ Sodium Chloride) 50 mls @ 100 mls/ hr IV Q6H JOYA Last Admin: 12/03/18 04:58 Dose: 100 mls/hr Iopamidol (Isovue Multipack-370 (76%)) 100 ml IVPUSH ONETIME STA Stop: 11/30/18 17:43 Last Admin: 11/30/18 17:42 Dose: 100 ml Morphine Sulfate (Morphine) 4 mg IVPUSH ONETIME ONE Stop: 11/30/18 17:47 Last Admin: 11/30/18 17:52 Dose: 4 mg Ondansetron HCl (Zofran) 4 mg IVPUSH ONETIME ONE Stop: 11/30/18 16:42 Last Admin: 11/30/18 17:07 Dose: 4 mg Oxycodone HCl (Oxycodone) 5 mg PO Q4H PRN PRN Reason: Pain
== END 2018-12-03 11:30 | disposition home or self-care (01) ==
LOC: MW.ED 16:20 → MW.MS 18:16
PROVIDERS: ADMIT Internal Medicine; ATTEND Internal Medicine
DX: K80.20 Calculus of gallbladder without cholecystitis without obstruction (principal); R17 Unspecified jaundice; R74.0 Nonspecific elevation of levels of transaminase and lactic acid dehydrogenase [LDH]; R74.8 Abnormal levels of other serum enzymes
CPT/HCPCS: 36415; 74177; 74177-26; 74181; 74181-26; 76705; 76705-26; 80053; 80074; 81001; 82247; 82248; 83690; 85025; 86677; 96361; 96374; 96375; 99284; 99285-25; A9270-GY; G0480; J0744; J1170; J2270; J2405; J2543; J3490; J7040; J7050; Q9967

== ENCOUNTER 2018-12-12 10:16 | Day surgery (SDC) | payer BC ==
[~2018-12-12 10:16] MED LIST: Bupivacaine 25%/EPINEPHrine/PF 30 ML ONE; Iopamidol 408 MG/ML 50 ML SDV ONE; Lactated Ringers 1,000 ML IV SCH; ceFAZolin 2 GM in Premix Bag 1 BAG IV ONE
[2018-12-12] MEDS ORDERED: Propofol 200 MG/20 ML SDV ONE (10:58)
[2018-12-12] MEDS ORDERED: fentaNYL 250 MCG/5 ML SDV ONE (10:59)
[2018-12-12] MEDS ORDERED: HYDROmorphone 2 MG/ML Syringe ONE ×2 (10:59→14:57)
[2018-12-12] MEDS ORDERED: Midazolam 1 MG/ML 2 ML SDV ONE (10:59)
[2018-12-12] MEDS ORDERED: ceFAZolin/Dextrose,Iso-Osmotic 2 GM/50 ML Duplex Bag IV ONE (11:04)
[2018-12-12] MEDS ORDERED: Scopolamine 1.5 MG Transdermal Patch TRDERM PRN (11:06)
[2018-12-12] MEDS ORDERED: Scopolamine 1.5 MG Transdermal Patch ONE (11:12)
--- NOTE | 2018-12-12 11:15 | PCM.PREANE ---
Preanesthetic Assessment - Anesthesia/Transfusion/Family Hx Anesthesia History: No Prior Anesthesia Family History of Anesthesia Reaction: No Transfusion History: No Prior Transfusion(s) Intubation History: Unknown - Review of Systems General: No Symptoms Pulmonary: No Symptoms Cardiovascular: No Symptoms Gastrointestinal: Abdominal Pain Neurological: No Symptoms Other: Reports: None - Physical Assessment O2 Sat by Pulse Oximetry: 99 Respiratory Rate: 16 Vital Signs: Last Vital Signs Temp 36.4 C 12/12/18 10:52 Pulse 87 12/12/18 10:52 Resp 16 12/12/18 10:52 BP 144/81 H 12/12/18 10:52 Pulse Ox 99 12/12/18 10:52 Height: 1.88 m Weight: 85.275 kg ASA Class: 2 Mental Status: Alert & Oriented x3 Airway Class: Mallampati = 2 Dentition: Reports: Normal Dentition Thyro-Mental Finger Breadths: 3 Mouth Opening Finger Breadths: 2 ROM/Head Extension: Full Lungs: Clear to Auscultation, Normal Respiratory Effort Cardiovascular: Regular Rate, Regular Rhythm - Allergies Allergies/Adverse Reactions: Allergies Allergy/AdvReac Type Severity Reaction Status Date / Time No Known Allergies Allergy Verified 12/09/18 12:41 - Blood Blood Available: No - Anesthesia Plan Pre-Op Medication Ordered: None - Acknowledgements Anesthesia Type Planned: General Anesthesia Pt an Appropriate Candidate for the Planned Anesthesia: Yes Alternatives and Risks of Anesthesia Discussed w Pt/Guardian: Yes Pt/Guardian Understands and Agrees with Anesthesia Plan: Yes PreAnesthesia Questionnaire - Past Health History Medical/Surgical History: Denies Medical/Surgical History HEENT History: Reports: Other (See Below) Other HEENT History: wears glasses Gastrointestinal History: Reports: Other (See Below) (cholelithiasis, jaundice ( possible cholecholithiais) he will have cholangiogram intraop. to rule it out) Musculoskeletal History: Reports: Back Pain, Chronic, Fracture, Neck Pain, Chronic Other Musculoskeletal History: degenerative disc disease, hx of fx toe Neurological History: Reports: Migraines, Other (See Below) Other Neuro History: hx of motion sickness Dermatologic History: Reports: Psoriasis Other Dermatologic History: on hands - Infectious Disease History Infectious Disease History: Reports: Chicken Pox Other Infectious Disease History: Fifth's Disease - Past Surgical History HEENT Surgical History: Reports: None Dermatological Surgical History: Reports: None - SUBSTANCE USE Smoking Status *Q: Current Every Day Smoker Tobacco Use Within Last Twelve Months: Cigarettes Recreational Drug Use History: Yes - HOME MEDS Home Medications: Home Meds Cbd Oil 1 cap PO DAILY 12/09/18 [History] - CURRENT (IN HOUSE) MEDS Current Meds: Current Medications Lactated Ringer's (Ringers, Lactated) 1,000 mls @ 125 mls/hr IV ASDIRECTED [facility] Last Admin: 12/12/18 10:56 Dose: 125 mls/hr Scopolamine (Transderm-Scop) 1.5 mg TRDERM Q72H PRN PRN Reason: Nausea Discontinued Medications Cefazolin Sodium/Dextrose (Ancef) Confirm Administered Dose 2 gm IV .STK-MED ONE Stop: 12/12/18 11:05 Fentanyl (Sublimaze) Confirm Administered Dose 250 mcg .ROUTE .STK-MED ONE Stop: 12/12/18 11:00 Hydromorphone HCl (Dilaudid) Confirm Administered Dose 2 mg .ROUTE .STK-MED ONE Stop: 12/12/18 11:00 Cefazolin Sodium/Dextrose 2 gm (/ Premix) 50 mls @ 100 mls/hr IV ONETIME ONE Stop: 12/12/18 05:29 Bupivacaine HCl/Epinephrine Bitart (Sensorc Mpf 0.25%-Epi 1:[id number]) Confirm Administered Dose 30 mls @ as directed .ROUTE .STK-MED ONE Stop: 12/12/18 08:48 Lidocaine HCl (Xylocaine-Mpf 1%) Confirm Administered Dose 5 mls @ as directed .ROUTE .STK-MED ONE Stop: 12/12/18 11:01 Iopamidol (Isovue-200 (41%)) Confirm Administered Dose 50 ml .ROUTE .STK-MED ONE Stop: 12/12/18 08:48 Midazolam HCl (Versed 1 Mg/Ml) Confirm Administered Dose 2 mg .ROUTE .STK-MED ONE Stop: 12/12/18 11:00 Propofol (Diprivan 20 Ml) Confirm Administered Dose 200 mg .ROUTE .STK-MED ONE Stop: 12/12/18 10:59
[2018-12-12] MEDS ORDERED: Sodium Chloride 0.9% 20 ML ONE (12:11)
[2018-12-12] MEDS ORDERED: Ondansetron 4 MG/2 ML SDV IVPUSH ONE (12:14)
[2018-12-12] MEDS ORDERED: Meperidine PF 25 MG/ML Syringe IVPUSH ONE (12:14)
[2018-12-12] MEDS ORDERED: Promethazine 25 MG/ML SDV IM ONE (12:14)
[2018-12-12] MEDS ORDERED: fentaNYL 100 MCG/2 ML SDV IVPUSH PRN (12:14)
[2018-12-12] MEDS ORDERED: HYDROmorphone 2 MG/ML SDV IVPUSH ONE (12:14)
[2018-12-12] MEDS ORDERED: Rocuronium 10 MG/ML 10 ML Syringe ONE (12:20)
[2018-12-12] MEDS ORDERED: Glycopyrrolate 0.2 MG/ML SDV ONE (12:20)
[2018-12-12] MEDS ORDERED: Ondansetron 4 MG/2 ML SDV ONE (12:20)
[2018-12-12] MEDS ORDERED: Neostigmine Methylsulfate 1 MG/ML 5 ML Syringe ONE (12:20)
[2018-12-12] MEDS ORDERED: Dexamethasone 4 MG/ML 5 ML MDV ONE (12:20)
[2018-12-12] MEDS ORDERED: Octyl 2-Cyanoacrylate 1 Tube ONE (13:40)
[2018-12-12] MEDS ORDERED: Acetaminophen/oxyCODONE 325-5 MG Tab PO PRN (14:15)
--- NOTE | 2018-12-12 14:15 | PCM.OPNOTE ---
- General Post-Op/Procedure Note Date of Surgery/Procedure: 12/12/18 Operative Procedure(s): lap estrellita w intraop choleangiogram Findings: gb was heavy scarred down with surrounding omentum suggested chronicity and inframmation; wall is not thickened; several tiny gall stones; surgicell placed for hemostasis ;[id number] Pre Op Diagnosis: cholecystitis, acute and chronic Post-Op Diagnosis: Same Anesthesia Technique: General ET Tube Primary Surgeon: John Mcguire Pathology: sent Complications: None Condition: Good
--- NOTE | 2018-12-12 15:05 | OR ---
SURGEON: John Mcguire MD DATE OF PROCEDURE: 12/12/2018 PREOPERATIVE DIAGNOSIS: Cholecystitis. POSTOPERATIVE DIAGNOSIS: Cholecystitis. PROCEDURES PERFORMED: Laparoscopic cholecystectomy with intraoperative cholangiogram. COMPLICATION: None. INTRAOPERATIVE FINDINGS: 1. Gallbladder was heavily scarred down with surrounding omentum such as chronicity and inflammation. 2. Wall is not thickened and several tiny gallstones, almost like dust inside the gallbladder. 3. Intraoperative cholangiogram per Radiology reading, everything is good. We will catch up with Radiology. I myself do not see any filling defect. and contrast went to duodenum. PROCEDURE IN DETAILS: The patient was taken to the operating room and placed in the supine position. Upon induction of general endotracheal anesthesia, patient's surgery was then started. The patient was taken to the operating room and placed in the supine position. After the intubation of general endotracheal anesthesia, the patient's abdomen was prepped and draped in sterile fashion. A time-out has been called, the patient was identified, the procedure was identified, and antibiotic was identified. The procedure then began. After assessment of appropriate landmarks, using Offeramaview, a 12 millimeter trocar was placed supraumbilically. This was then followed with pneumoperitoneum. After accomplishment with pneumoperitoneum, three 5 millimeter trocar were placed in the right upper quadrant and epigastrium. Placement of the 5 millimeter trocars were placed under direct video supervision. Upon gaining entrance to the abdominal cavity, a retractor retracted the gallbladder to the dome of the liver. If there was any adherence, the adherence will be taken down first. Then we will work on the Calot triangle and expose the tubular structure of the cystic duct, and skeletonize the duct from the surrounding structures. A clip was placed distally. Then using a scissor, a small cut was made at the cystic duct. A cholangiogram catheter inserted percutaneously was then inserted via the cystic duct opening. The cholangiogram was then performed. The cholangiogram delineate the entire biliary tree anatomy. and the cholangiogram catheter was removed, and three more clips placed proximally, and placement of the clips and the transection that was performed with the posterior prong of the instrument was clearly visualized prior to exercising the procedure. Then further dissection of the Calot triangle, the cystic artery was encountered. It was clipped four times, three proximally and one distally, and then transected. Again, the placement of the clip and the transection was performed with care, ensuring that the posterior prong of the instrument was clearly visualized prior to exercising the procedure. Then the gallbladder was skeletonized from the liver bed and then retrieved from the umbilical site. Following that we looked at the liver bed and good hemostasis was achieved using electrocautery. The trocar was then removed under direct video supervision. One big breath was given to avoid postoperative nausea prior to removing the trocar. This was then followed with closing of the umbilical hole trocar site using 0- Vicryl and 4-0 Vicryl to approximate the skin, and then followed with Dermabond. This was then followed with 4-0 Vicryl on the other three trocar sites and Dermabond. The patient was then awakened and extubated, and transferred to the recovery room in hemodynamically stable condition. The patient tolerated the procedure well. There were no intraoperative complications. Dr. Mcguire was present through the whole procedure. PROCEDURE IN DETAILS: The patient was taken to the operating room and placed in the supine position. Upon induction of general endotracheal anesthesia, patient's surgery was then started. The patient was taken to the operating room and placed in the supine position. After the intubation of general endotracheal anesthesia, the patient's abdomen was prepped and draped in sterile fashion. A time-out has been called, the patient was identified, the procedure was identified, and antibiotic was identified. The procedure then began. After assessment of appropriate landmarks, using Optiview, a 12 millimeter trocar was placed supraumbilically. This was then followed with pneumoperitoneum. After accomplishment with pneumoperitoneum, three 5 millimeter trocar were placed in the right upper quadrant and epigastrium. Placement of the 5 millimeter trocars were placed under direct video supervision. Upon gaining entrance to the abdominal cavity, a retractor retracted the gallbladder to the dome of the liver. If there was any adherence, the adherence will be taken down first. Then we will work on the Calot triangle and expose the tubular structure of the cystic duct, and skeletonize the duct from the surrounding structures. A clip was placed distally. Then using a scissor, a small cut was made at the cystic duct. A cholangiogram catheter inserted percutaneously was then inserted via the cystic duct opening. The cholangiogram was then performed. The cholangiogram delineate the entire biliary tree anatomy. and the cholangiogram catheter was removed, and three more clips placed proximally, and placement of the clips and the transection that was performed with the posterior prong of the instrument was clearly visualized prior to exercising the procedure. Then further dissection of the Calot triangle, the cystic artery was encountered. It was clipped four times, three proximally and one distally, and then transected. Again, the placement of the clip and the transection was performed with care, ensuring that the posterior prong of the instrument was clearly visualized prior to exercising the procedure. Then the gallbladder was skeletonized from the liver bed and then retrieved from the umbilical site. Following that we looked at the liver bed and good hemostasis was achieved using electrocautery. The trocar was then removed under direct video supervision. One big breath was given to avoid postoperative nausea prior to removing the trocar. This was then followed with closing of the umbilical hole trocar site using 0- Vicryl and 4-0 Vicryl to approximate the skin, and then followed with Dermabond. This was then followed with 4-0 Vicryl on the other three trocar sites and Dermabond. The patient was then awakened and extubated, and transferred to the recovery room in hemodynamically stable condition. The patient tolerated the procedure well. There were no intraoperative complications. Dr. Mcguire was present through the whole procedure. LIZA / ELLIS /[id number] MTDD
--- NOTE | 2018-12-12 15:16 | PCM.POSTAN ---
POST ANESTHESIA ASSESSMENT - MENTAL STATUS Mental Status: Alert, Oriented - RESPIRATORY Respiratory Status: Respiratory Rate WNL, Airway Patent, O2 Saturation Stable - CARDIOVASCULAR CV Status: Pulse Rate WNL, Blood Pressure Stable - GASTROINTESTINAL GI Status: No Symptoms - PAIN Pain Score: 6 - POST OP HYDRATION Hydration Status: Adequate & Stable - OBSERVATIONS Free Text/Narrative:: no anesthesia problems
--- NOTE | 2018-12-12 15:47 | CR ---
EXAMINATION: Intraoperative cholangiogram HISTORY: Cholangiogram COMPARISON: CT dated 11/30/2018 TECHNIQUE: A total of 6 fluoroscopic images provided. FINDINGS: The visualized biliary appears minimally dilated otherwise normal. There is no filling defect. No extravasation of contrast following ligation of the cystic duct. Passage of contrast into the small bowel is noted. IMPRESSION: Grossly unremarkable cholangiogram.
[2018-12-12 16:54] VITALS: BP 124/70
== END 2018-12-12 17:05 | disposition home or self-care (01) ==
LOC: MW.SDS 10:16
PROVIDERS: ATTEND Surgery
DX: K80.10 Calculus of gallbladder with chronic cholecystitis without obstruction (principal); F17.210 Nicotine dependence, cigarettes, uncomplicated
CPT/HCPCS: 47563; 76000; A9270; J0690; J1100; J1170; J2001; J2250; J2405; J2704; J3010; J3490; J7120; Q9966; 88304

== ENCOUNTER 2019-12-08 01:06 | Emergency (ER) | payer BC ==
[2019-12-08] MEDS ORDERED: Diphtheria,Pertussis(Acell),Tetanus Vaccine 0.5 ML Syringe IM ONE (02:56)
--- NOTE | 2019-12-08 03:12 | EDM.PDOC ---
ED HPI GENERAL MEDICAL PROBLEM - General Chief Complaint: Laceration Stated Complaint: CUT ON LT HAND Time Seen by Provider: 12/08/19 02:00 Source of Information: Reports: Patient History Limitations: Reports: No Limitations - History of Present Illness INITIAL COMMENTS - FREE TEXT/NARRATIVE: 39-year-old male presents the emergency room after injuring himself with a razor blade trying to do some home repair. Difficulty moving his left little finger. Onset: Today Duration: Hour(s): Location: Reports: Upper Extremity, Left Quality: Reports: Stabbing Severity: Mild Improves with: Reports: None Associated Symptoms: Reports: No Other Symptoms Left Hand Pain Score (Numeric/FACES): 4 - Related Data Allergies Allergy/AdvReac Type Severity Reaction Status Date / Time No Known Allergies Allergy Verified 12/08/19 01:14 Home Meds: Home Meds . [No Known Home Meds] 12/08/19 [History] Past Medical History - Past Health History Medical/Surgical History: Denies Medical/Surgical History HEENT History: Reports: Other (See Below) Other HEENT History: wears glasses Gastrointestinal History: Reports: Other (See Below) Musculoskeletal History: Reports: Back Pain, Chronic, Fracture, Neck Pain, Chronic Other Musculoskeletal History: degenerative disc disease, hx of fx toe Neurological History: Reports: Migraines, Other (See Below) Other Neuro History: hx of motion sickness Dermatologic History: Reports: Psoriasis Other Dermatologic History: on hands - Infectious Disease History Infectious Disease History: Reports: Chicken Pox Other Infectious Disease History: Fifth's Disease - Past Surgical History HEENT Surgical History: Reports: None GI Surgical History: Reports: Cholecystectomy Dermatological Surgical History: Reports: None Social & Family History - Family History Family Medical History: Noncontributory - Tobacco Use Smoking Status *Q: Current Every Day Smoker Years of Tobacco use: 10 Packs/Tins Daily: 0.5 - Caffeine Use Caffeine Use: Reports: Soda - Recreational Drug Use Recreational Drug Use: No ED ROS GENERAL - Review of Systems Review Of Systems: See Below Constitutional: Reports: No Symptoms HEENT: Reports: No Symptoms Respiratory: Reports: No Symptoms Cardiovascular: Reports: No Symptoms Endocrine: Reports: No Symptoms GI/Abdominal: Reports: No Symptoms : Reports: No Symptoms Musculoskeletal: Reports: No Symptoms Skin: Reports: Wound Neurological: Reports: No Symptoms Psychiatric: Reports: No Symptoms Hematologic/Lymphatic: Reports: No Symptoms Immunologic: Reports: No Symptoms ED EXAM, SKIN/RASH Exam: See Below Text/Narrative:: 1 cm laceration to the lateral aspects of the palmar area of the hand right below the little finger. Patient is unable to bend at the DIP. Patient able to bend at the PIP any problem. Patient has numbness to the lateral side of his little finger but has good circulation. No other problems. Exam Limited By: No Limitations General Appearance: Alert, WD/WN, No Apparent Distress Eye Exam: Bilateral Eye: Normal Fundi, Normal Inspection Ears: Normal External Exam Nose: Normal Inspection Throat/Mouth: Normal Inspection Head: Atraumatic, Normocephalic Neck: Normal Inspection Respiratory/Chest: No Respiratory Distress Cardiovascular: Normal Peripheral Pulses (Male) Exam: Deferred Rectal (Males) Exam: Deferred Back Exam: Normal Inspection Extremities: Other (Is a 1.5 cm laceration to the lateral aspect of the palmar surface of the hand.Able to flex at the DIP of the little finger and hand) ED SKIN PROCEDURES - Laceration/Wound Repair Left Hand Appearance: Superficial, Clean Distal NVT: Other (He has some numbness to the lateral surface of the left hand lateral to the nailbed of the left little finger) Anesthetic Type: Local Local Anesthesia - Lidocaine (Xylocaine): 1% Plain Local Anesthetic Volume: 5cc Skin Prep: Chlorhexidine (Hibiciens) Saline Irrigation (cc's): 15 Exploration/Debridement/Repair: In a Bloodless Field Closed with: Sutures Lac/Wound length In cm: 1.5 Suture Size: 3-0 Suture Type: Nylon, Simple Complication Description: Unable to flex at the DIP. I have discussed the case with the [facility] at [facility]. He suggested those the laceration and placed the patient in a splint start the patient on antibiotics and have the patient come on Sunday to the hand clinic Course - Vital Signs Last Recorded V/S: Last Vital Signs Temp 98.1 F 12/08/19 01:14 Pulse 107 H 12/08/19 01:14 Resp 18 12/08/19 01:14 BP 149/84 H 12/08/19 01:14 Pulse Ox 98 12/08/19 01:14 - Orders/Labs/Meds Orders: Active Orders 24 hr Category Date Time Status Vaccines to be Administered [RC] PER UNIT ROUTINE Care 12/08/19 02:56 Active Meds: Medications Discontinued Medications Generic Name Dose Route Start Last Admin Trade Name Tanja PRN Reason Stop Dose Admin Diphtheria/Tetanus/Acell Pertussis 0.5 ml 12/08/19 02:56 Adacel IM 12/08/19 02:57 .ONCE ONE Lidocaine HCl 5 ml 12/08/19 02:15 12/08/19 02:43 Xylocaine-Mpf 1% INJECT 12/08/19 02:16 5 ml ONETIME ONE Administration Departure - Departure Time of Disposition: 03:15 Disposition: Home, Self-Care 01 Condition: Good Clinical Impression: Laceration involving tendon - Discharge Information Instructions: Laceration Care, Adult, [id number] Forms: ED Department Discharge Additional Instructions: And is to follow-up with Dr. Johnson in [facility]. Take antibiotics as prescribed and leave the splint on. Care Plan Goals: The following information is given to patients seen in the emergency department who are being discharged to home. This information is to outline your options for follow-up care. We provide all patients seen in our emergency department with a follow-up referral. The need for follow-up, as well as the timing and circumstances, are variable depending upon the specifics of your emergency department visit. If you don't have a primary care physician on staff , we will provide you with a referral. We always advise you to contact your personal physician following an emergency department visit to inform them of the circumstance of the visit and for follow-up with them and/or the need for any referrals to a consulting specialist. The emergency department will also refer you to a specialist when appropriate. This referral assures that you have the opportunity for follow-up care with a specialist. All of these measure are taken in an effort to provide you with optimal care, which includes your follow- up. Under all circumstances we always encourage you to contact your private physician who remains a resource for coordinating your care. When calling for follow-up care, please make the office aware that this follow-up is from your recent emergency room visit. If for any reason you are refused follow-up, please contact the [facility] at and asked to speak to the emergency department charge nurse. [facility] [address] [place] [address] [facility] [address] [place] [address] Johnson office first thing in the am and followup with his office. Keep the area clean and dry, do not soak. Sepsis Event Note - Evaluation Sepsis Screening Result: No Definite Risk - Focused Exam Vital Signs: Vital Signs Temp Pulse Resp BP Pulse Ox 12/08/19 01:14 98.1 F 107 H 18 149/84 H 98 Date Exam was Performed: 12/08/19 Time Exam was Performed: 03:07 - My Orders Last 24 Hours: My Active Orders 12/08/19 02:56 Vaccines to be Administered [RC] PER UNIT ROUTINE - Assessment/Plan Last 24 Hours: My Active Orders 12/08/19 02:56 Vaccines to be Administered [RC] PER UNIT ROUTINE
[2019-12-08] MEDS ORDERED: Cephalexin 500 MG Cap PO ONE (03:21)
[2019-12-08 03:59] VITALS: BP 128/84; PULSE 95
== END 2019-12-08 03:24 | disposition home or self-care (01) ==
LOC: MW.ED 01:06
DX: S66.922A Laceration of unspecified muscle, fascia and tendon at wrist and hand level, left hand, initial encounter (principal); Z23 Encounter for immunization; F17.210 Nicotine dependence, cigarettes, uncomplicated; W26.8XXA Contact with other sharp object(s), not elsewhere classified, initial encounter
CPT/HCPCS: 12001; 90471; 90715; 99282; A9270; J2001

== ENCOUNTER 2020-01-15 22:55 | Emergency (ER) | payer BC ==
[2020-01-15] MEDS ORDERED: Doxycycline 100 MG Cap PO ONE (23:35)
--- NOTE | 2020-01-15 23:35 | EDM.PDOC ---
ED HPI GENERAL MEDICAL PROBLEM - General Chief Complaint: Skin Complaint Stated Complaint: POSSIBLE CELLULITIS IN FOOT Time Seen by Provider: 01/15/20 23:04 - History of Present Illness INITIAL COMMENTS - FREE TEXT/NARRATIVE: 39-year-old male presents with redness and warmth on his left lateral ankle around his lateral malleolus. Patient reports noticing this 48 hours ago where it was already about 5 x 4 cm in size. It is very slowly gotten larger and now is about a third larger but is not changed much in the last 24 hours. Patient denies any systemic symptoms. Patient denies any fever, chills, nausea, vomiting, leg pain, leg swelling, history of DVT, vision changes, headaches, confusion, chest pain, changes in bowel or bladder habits. Patient is a smoker. left foot Pain Score (Numeric/FACES): 3 - Related Data Allergies Allergy/AdvReac Type Severity Reaction Status Date / Time No Known Allergies Allergy Verified 01/15/20 23:06 Home Meds: Home Meds Doxycycline [Vibramycin] 100 mg PO BID 7 Days #14 cap 01/15/20 [Rx] Past Medical History - Past Health History Medical/Surgical History: Denies Medical/Surgical History HEENT History: Reports: Other (See Below) Other HEENT History: wears glasses Cardiovascular History: Reports: None Respiratory History: Reports: None Gastrointestinal History: Reports: Other (See Below) Genitourinary History: Reports: None Musculoskeletal History: Reports: Back Pain, Chronic, Fracture, Neck Pain, Chronic Other Musculoskeletal History: degenerative disc disease, hx of fx toe Neurological History: Reports: Migraines, Other (See Below) Other Neuro History: hx of motion sickness Psychiatric History: Reports: None Endocrine/Metabolic History: Reports: None Hematologic History: Reports: None Immunologic History: Reports: None Oncologic (Cancer) History: Reports: None Dermatologic History: Reports: Psoriasis Other Dermatologic History: on hands - Infectious Disease History Infectious Disease History: Reports: Chicken Pox Other Infectious Disease History: Fifth's Disease - Past Surgical History Head Surgeries/Procedures: Reports: None HEENT Surgical History: Reports: None Cardiovascular Surgical History: Reports: None Respiratory Surgical History: Reports: None GI Surgical History: Reports: Cholecystectomy Male Surgical History: Reports: None Endocrine Surgical History: Reports: None Neurological Surgical History: Reports: None Musculoskeletal Surgical History: Reports: None Oncologic Surgical History: Reports: None Dermatological Surgical History: Reports: None Social & Family History - Family History Family Medical History: Noncontributory - Tobacco Use Smoking Status *Q: Current Every Day Smoker Years of Tobacco use: 10 Packs/Tins Daily: 0.5 - Caffeine Use Caffeine Use: Reports: Soda - Recreational Drug Use Recreational Drug Use: No ED ROS GENERAL - Review of Systems Review Of Systems: Comprehensive ROS is negative, except as noted in HPI. ED EXAM, SKIN/RASH Exam: See Below Text/Narrative:: General: No acute distress. Comfortable. Heent: Examination revealed no pallor, no icterus, no lymphadenopathy. The patient has normal posterior pharynx, moist mucous membranes. Neck: Supple. No JVD. No rigidity. Heart: Normal rate. Reg rhythm. No murmurs appreciated. Lungs: Bilaterally clear to auscultation. No focal findings. Abdomen: Nontender, non-distended, soft, no CVA tenderness. Neuro: Pt is moving all four extremities. EOMI. PERRL. Normal speech. Skin: Exposed areas appeared normally perfused, warm, normal color with no meaningful rashes or lesions. Extremities: There is a 5 x 8 cm area of redness and warmth around the lateral malleolus. There is no streaking up the leg. There is no warmth in the lower leg. There is no tenderness of the medial leg at the thigh and the popliteal fossa or in the calf. Extremity motion excellent pulses distally. There is 0 pain with ranging the toes and ankle. Peripheral examination revealed no pitting pedal edema, however there is mild swelling on the lateral aspect of that ankle. Course - Vital Signs Text/Narrative:: Presentation not consistent with gout or joint pathology because he is absolutely painless with ranging of the leg. Patient is nondiabetic but he is a smoker. This is localized to last which has not changed much in 48 hours. Patient did have a previous admission for cellulitis of the same area but there was broken skin that time after a crush injury. No indication today for possible admission. Trial of antibiotic. Return with any worsening. Last Recorded V/S: Last Vital Signs Temp 97.5 F 01/15/20 23:07 Pulse 103 H 01/15/20 23:07 Resp 18 01/15/20 23:07 BP 141/90 H 01/15/20 23:07 Pulse Ox 97 01/15/20 23:07 Departure - Departure Time of Disposition: 23:33 Disposition: DC/[facility]fer to [facility] Condition: Good Clinical Impression: Cellulitis - Discharge Information Prescriptions: Doxycycline [Vibramycin] 100 mg PO BID 7 Days #14 cap Referrals: Helio Tim MD [Primary Care Provider] - Sepsis Event Note - Evaluation Sepsis Screening Result: No Definite Risk - Focused Exam Vital Signs: Vital Signs Temp Pulse Resp BP Pulse Ox 01/15/20 23:07 97.5 F 103 H 18 141/90 H 97 Date Exam was Performed: 01/15/20 Time Exam was Performed: 23:29
[2020-01-15 23:45] VITALS: BP 146/92; PULSE 101
== END 2020-01-15 23:48 | disposition home or self-care (01) ==
LOC: MW.ED 22:55
DX: L03.116 Cellulitis of left lower limb (principal); F17.210 Nicotine dependence, cigarettes, uncomplicated
CPT/HCPCS: 99283; A9270

== ENCOUNTER 2022-09-06 03:57 | Emergency (ER) | payer BC ==
[2022-09-06] MEDS ORDERED: Doxycycline 100 MG Cap PO STA (05:38)
[2022-09-06 05:45] LABS: CARBON DIOXIDE,CO2 27.4 mmol/L (21.0-32.0); POTASSIUM,K 3.4 mmol/L (3.5-5.1)
[2022-09-06 05:58] VITALS: BP 142/69; PULSE 77
== END 2022-09-06 05:57 | disposition home or self-care (01) ==
LOC: MW.ED 03:57
DX: L03.116 Cellulitis of left lower limb (principal)
CPT/HCPCS: 36415; 73610; 80053; 85025; 85379; 99283; A9270

== ENCOUNTER 2022-09-07 18:53 | Inpatient (IN) | payer BC ==
[2022-09-07] MEDS ORDERED: Sodium Chloride 0.9% 2.5 ML Syringe FLUSH PRN (19:40)
[2022-09-07] MEDS ORDERED: Sodium Chloride 0.9% 10 ML Syringe FLUSH PRN (19:40)
[2022-09-07] MEDS ORDERED: Lactated Ringers 1,000 ML IV ONE ×2 (19:41)
[2022-09-07] MEDS ORDERED: LACTATED RINGERS IV ONE (19:42)
[2022-09-07 20:07] LABS: CARBON DIOXIDE,CO2 25.7 mmol/L (21.0-32.0); POTASSIUM,K 3.5 mmol/L (3.5-5.1)
[2022-09-07] MEDS ORDERED: Acetaminophen 325 MG Tab PO ONE (20:15)
[2022-09-07] MEDS ORDERED: Morphine 4 MG/ML Syringe IVPUSH ONE (20:37)
[2022-09-07] MEDS ORDERED: Ondansetron 4 MG/2 ML SDV IVPUSH ONE (20:37)
[2022-09-07] MEDS ORDERED: Piperacillin/Tazobactam 4.5 GM in Sodium Chloride 0.9% 100 ML IV ONE (21:00)
[2022-09-07] MEDS: ceFAZolin 2 GM in Premix Bag 1 BAG IV ONE ×2 (21:02→21:09)
[2022-09-07] MEDS ORDERED: VANCOmycin 1.75 GM/350 ML 1.75 GM in Premix Bag 1 BAG IV ONE (21:15)
[2022-09-07 21:49] LABS: CORONAVIRUS COVID-19 NAA NEGATIVE (NEGATIVE); INFLUENZA A NAA NEGATIVE (NEGATIVE); INFLUENZA B NAA NEGATIVE (NEGATIVE)
[2022-09-07] MEDS ORDERED: Ondansetron 4 MG/2 ML SDV IVPUSH PRN (23:47)
[2022-09-07] MEDS ORDERED: Morphine 2 MG/ML SYRINGE IVPUSH PRN (23:47)
[2022-09-08] MEDS: Lactated Ringers 1,000 ML IV SCH ×3 (01:22→23:10)
[2022-09-08] MEDS: Enoxaparin 40 MG/0.4 ML Syringe SUBCUT SCH ×2 (01:22→23:11)
[2022-09-08] MEDS: Piperacillin/Tazobactam 4.5 GM in Sodium Chloride 0.9% 100 ML IV SCH ×3 (04:53→20:36)
[2022-09-08 06:44] LABS: CARBON DIOXIDE,CO2 22.7 mmol/L (21.0-32.0); POTASSIUM,K 3.3 mmol/L (3.5-5.1)
[2022-09-08] MEDS ORDERED: Albuterol/Ipratropium 3.0-0.5 MG/3 ML Neb Soln NEB PRN (07:10)
[2022-09-08] MEDS ORDERED: Polyethylene Glycol 3350 Powder 17 GM Packet PO PRN (07:11)
[2022-09-08] MEDS ORDERED: Magnesium Sulfate/Water 2 GM in Premix Bag 1 BAG IV ONE (07:15)
[2022-09-08] MEDS ORDERED: Potassium Chloride 20 MEQ Tab.ER PO ONE (07:15)
[2022-09-08] MEDS: Pantoprazole 40 MG Tab.CR PO SCH (07:59)
[2022-09-08] MEDS: Acetaminophen 325 MG Tab PO PRN ×2 (07:59→20:31)
[2022-09-08] MEDS ORDERED: Pantoprazole 40 MG in Sodium Chloride 0.9% 10 ML IVPUSH SCH (09:00)
[2022-09-08 11:30] LABS: HEMOGLOBIN A1C 5.6 %
[2022-09-09] MEDS: Piperacillin/Tazobactam 4.5 GM in Sodium Chloride 0.9% 100 ML IV SCH ×3 (04:07→21:41)
[2022-09-09 06:26] LABS: CARBON DIOXIDE,CO2 25.7 mmol/L (21.0-32.0); POTASSIUM,K 3.7 mmol/L (3.5-5.1)
[2022-09-09] MEDS: Pantoprazole 40 MG Tab.CR PO SCH (09:01)
[2022-09-09] MEDS: Lactated Ringers 1,000 ML IV SCH ×2 (09:02→17:35)
[2022-09-09] MEDS: Acetaminophen 325 MG Tab PO PRN (09:13)
[2022-09-10] MEDS: Enoxaparin 40 MG/0.4 ML Syringe SUBCUT SCH (00:23)
[2022-09-10] MEDS: Acetaminophen 325 MG Tab PO PRN (00:31)
[2022-09-10] MEDS ORDERED: Morphine 2 MG/ML SYRINGE IVPUSH ONE (00:50)
[2022-09-10] MEDS: Lactated Ringers 1,000 ML IV SCH (04:21)
[2022-09-10] MEDS: Piperacillin/Tazobactam 4.5 GM in Sodium Chloride 0.9% 100 ML IV SCH ×3 (05:22→21:13)
[2022-09-10 07:06] LABS: CARBON DIOXIDE,CO2 25.6 mmol/L (21.0-32.0)
[2022-09-10] MEDS ORDERED: Potassium Chloride 20 MEQ Tab.ER PO ONE ×2 (08:12→12:00)
[2022-09-10] MEDS: Pantoprazole 40 MG Tab.CR PO SCH (08:23)
[2022-09-10] MEDS ORDERED: Ketorolac 30 MG/ML SDV IVPUSH ONE (13:15)
[2022-09-10] MEDS: Ketorolac 10 MG Tab PO SCH ×2 (13:23→18:24)
[2022-09-11] MEDS: Ketorolac 10 MG Tab PO SCH ×2 (01:15→06:25)
[2022-09-11] MEDS: Enoxaparin 40 MG/0.4 ML Syringe SUBCUT SCH (01:15)
[2022-09-11] MEDS: Piperacillin/Tazobactam 4.5 GM in Sodium Chloride 0.9% 100 ML IV SCH (05:08)
[2022-09-11 07:17] LABS: CARBON DIOXIDE,CO2 25.6 mmol/L (21.0-32.0); POTASSIUM,K 3.5 mmol/L (3.5-5.1)
[2022-09-11] MEDS: Pantoprazole 40 MG Tab.CR PO SCH (08:39)
[2022-09-11 09:25] VITALS: BP 126/85; PULSE 65
== END 2022-09-11 12:10 | disposition home or self-care (01) | DRG 720 ==
LOC: MW.ED 18:53 → MW.MS 21:01
PROVIDERS: ADMIT Student in an Organized Health Care Education/Training Program; ATTEND Student in an Organized Health Care Education/Training Program
DX: A41.9 Sepsis, unspecified organism (principal); L03.116 Cellulitis of left lower limb; G43.909 Migraine, unspecified, not intractable, without status migrainosus; K21.9 Gastro-esophageal reflux disease without esophagitis; G89.29 Other chronic pain; M54.2 Cervicalgia; F32.A Depression, unspecified; Z90.49 Acquired absence of other specified parts of digestive tract; M19.90 Unspecified osteoarthritis, unspecified site; L40.9 Psoriasis, unspecified; Z20.822 Contact with and (suspected) exposure to COVID-19
CPT/HCPCS: 0240U; 36415; 73700-26-LT; 73700-LT; 80048; 80053; 80202; 83036; 83605; 83735; 84100; 85025; 87040; 87641; 93971-26-LT; 93971-LT; 96361; 96374; 96375; 99285-25; A9270-GY; J1650; J1885; J2270; J2405; J2543; J3370; J3475; J3490; J7050; J7120

== ENCOUNTER 2023-05-26 19:58 | Emergency (ER) | payer BC ==
[2023-05-26] MEDS ORDERED: Sodium Chloride 0.9% 10 ML Syringe FLUSH PRN (20:05)
[2023-05-26] MEDS ORDERED: Sodium Chloride 0.9% 1,000 ML IV ONE (20:05)
[2023-05-26] MEDS ORDERED: Sodium Chloride 0.9% 2.5 ML Syringe FLUSH PRN (20:05)
[2023-05-26 20:43] LABS: BASOPHILS PERCENT AUTO 0.5 % (0.0-1.5); EOSINOPHILS ABSOLUTE AUTO 0.1 K/uL (0.0-0.7); EOSINOPHILS PERCENT AUTO 1.2 % (0.0-7.0); HEMATOCRIT 40.9 % (38.0-50.0); HEMOGLOBIN 13.7 g/dL (13.0-17.0); LYMPHOCYTES ABSOLUTE AUTO 1.9 K/uL (0.6-2.4); LYMPHOCYTES PERCENT AUTO 21.8 % (16.0-40.0); MEAN CORPUSCULAR HEMOGLOBIN 28.1 pg (27.0-32.0); MEAN CORPUSCULAR HGB CONC 33.5 g/dL (31.0-37.0); MEAN CORPUSCULAR VOLUME 83.8 fL (80.0-98.0); MONOCYTES ABSOLUTE AUTO 0.7 K/uL (0.0-0.8); MONOCYTES PERCENT AUTO 8.3 % (0.0-15.0); NEUTROPHILS ABSOLUTE AUTO 5.8 K/uL (1.4-5.7); NEUTROPHILS PERCENT AUTO 68.2 % (48.0-80.0); NRBC ABSOLUTE 0 K/uL; PLATELET COUNT,PLT 280 K/uL (150-400); RED BLOOD CELL COUNT 4.88 M/uL (4.50-5.90); WHITE BLOOD CELL COUNT,WBC 8.52 K/uL (4.0-11.0)
[2023-05-26 21:05] LABS: A/G RATIO 0.8 (0.9-1.6); ALANINE AMINOTRANSFERASE,ALT 18 IU/L (14-63); ALBUMIN 3.2 g/dL (3.4-5.0); ALKALINE PHOSPHATASE 72 U/L (46-116); ASPARTATE AMNIOTRANSFERASE,AST 12 IU/L (15-37); BILIRUBIN TOTAL 0.3 mg/dL (0.2-1.0); BLOOD UREA NITROGEN,BUN 18 mg/dL (7.0-18.0); CALCIUM 7.8 mg/dL (8.5-10.1); CARBON DIOXIDE,CO2 27.1 mmol/L (21.0-32.0); CHLORIDE,CL 103 mmol/L (98-107); CREATININE 1.4 mg/dL (0.8-1.3); EST CRCL DRUG DOSING (CG) 78.47 mL/min; GLUCOSE RANDOM 148 mg/dL (74-106); POTASSIUM,K 3.7 mmol/L (3.5-5.1); SODIUM,NA 138 mmol/L (136-148)
[2023-05-26 21:06] LABS: ESTIMATED GFR 65 mL/min (>60); ETHANOL BLOOD MEDICAL < 3.0 mg/dL
[2023-05-26] MEDS ORDERED: Iopamidol 755 MG/ML 500 ML Multipack Bottle IVPUSH ONE (21:17)
[2023-05-26 23:13] VITALS: BP 137/83; PULSE 84
== END 2023-05-26 23:13 | disposition home or self-care (01) ==
LOC: MW.ED 19:58
DX: R55 Syncope and collapse (principal); E86.0 Dehydration; I10 Essential (primary) hypertension
CPT/HCPCS: 36415; 71045; 71275; 80053; 80307; 84484; 85025; 93005; 96360; 99284; J3490; J7030; Q9967; 93010

== ENCOUNTER 2023-06-07 22:28 | Emergency (ER) | payer BC ==
[2023-06-08 01:26] VITALS: BP 126/92; PULSE 61
== END 2023-06-08 01:35 | disposition home or self-care (01) ==
LOC: MW.ED 22:28
DX: Z02.89 Encounter for other administrative examinations (principal); I10 Essential (primary) hypertension
CPT/HCPCS: 99282; 99283